=== PATIENT | female | born 1985 | race Caucasian/White ===

== ENCOUNTER 2018-03-19 14:25 | Emergency (ER) | payer BC ==
[2018-03-19] MEDS ORDERED: BABY ASPIRIN 81 MG CHEW PO ONE (14:58)
[2018-03-19] MEDS ORDERED: Sodium Chloride 0.9% 1000 ML 1,000 ML IV SCH (15:00)
[2018-03-19] MEDS ORDERED: Sodium Chloride 0.9% 1000 ML 1,000 ML ONE (15:06)
[2018-03-19] MEDS ORDERED: BABY ASPIRIN 81 MG CHEW ONE (15:06)
[2018-03-19 15:08] LABS: BASOPHIL % 0.2 % (0.0-0.4); Basophil (Absolute #) 0.01 (0-0.4); Eosinophil % 2.8 % (0.00-5.0); Eosinophil (Absolute #) 0.18 (0-0.5); Granulocyte Absolute (ANC) 4.26 (1.4-6.9); Granulocytes % 66.2 % (36.0-66.0); Hematocrit 36.1 % (35-47); Hemoglobin 12.2 gm/dl (12.0-16.0); Lymphocyte (Absolute #) 1.56 (1.0-4.6); Lymphocytes % 24.3 % (24.0-44.0); Mean Cell Volume 82.8 fl (78-100); Mean Corpuscular Hgb Concent. 33.8 g/dl (32-36); Monocyte (Absolute #) 0.42 (0.0-1.3); Monocytes % 6.5 % (0.0-12.0); Platelet Count 228 K/mm3 (150-450); Red Blood Count 4.36 M/mm3 (4.1-5.4); Red Cell Distribution Width 14.1 % (11.5-14.0); White Blood Count 6.4 K/mm3 (4.0-10.5)
--- NOTE | 2018-03-19 15:23 | XRAY ---
Indication: Dyspnea. Left chest pain. Comparison: November 07, 2016. PA/lateral chest again demonstrates normal heart, lungs, and bony thorax.
--- NOTE | 2018-03-19 15:40 | ERPHSYRPT ---
- History of Present Illness Time Seen by Provider: 03/19/18 14:46 Historian: patient Exam Limitations: clinical condition Patient Subjective Stated Complaint: chest pain for two hours while cleaning house today. states pain did stop on her way to the er. Triage Nursing Assessment: ambulated to room per self. skin w/d, color normal, resp easy. hx mvp. heart tones regular, strong. right radial pulse strong. no sob or edema noted. denies any other symptoms. Physician History: PATIENT WITH A HISTORY OF MITRAL VALVE PROLAPSE AND ANXIETY COMPLAINS OF CHEST PAINS SHARP WHILE CLEANING, OVER STERUM AND LEFT SIDE OF CHEST BELOW BREAST AND AXILLA. STATES PAIN RESOLVED. DENIES ASSOCIATED DYSPNEA, DIAPHORESIS, PALPITATIONS, RADIATION OF PAIN TO NECK, JAW, BACK OR ARMS. SHE ALSO DENIES FEVER OR COUGH. Timing/Duration: today Activities at Onset: activity Quality: sharpness Location: substernal Chest Pain Radiation: no radiation Severity of Pain-Max: moderate Severity of Pain-Current: none Modifying Factors: Improves With: breathing, movement Associated Symptoms: hurts to breathe Prior Chest Pain/Cardiac Workup: echocardiography Nitro Today/Relief: no nitro taken today Aspirin Treatment Today: 81 mg x 4, provided by ED Allergies/Adverse Reactions: naproxen Allergy (Verified 03/19/18 14:45) Home Medications: PARoxetine HCl [Paroxetine HCl] 10 mg PO HS 03/19/18 [History] Hx Tetanus, Diphtheria Vaccination/Date Given: No Hx Influenza Vaccination/Date Given: No Hx Pneumococcal Vaccination/Date Given: No - Review of Systems Constitutional: No Fever, No Chills Eyes: No Symptoms Ears, Nose, & Throat: No Symptoms Respiratory: No Symptoms, No Cough, No Dyspnea Cardiac: Chest Pain, No Edema, No Syncope Abdominal/Gastrointestinal: No Symptoms, No Abdominal Pain, No Nausea, No Vomiting, No Diarrhea Genitourinary Symptoms: No Symptoms, No Dysuria Musculoskeletal: No Symptoms, No Back Pain, No Neck Pain Skin: No Rash Neurological: No Dizziness, No Focal Weakness, No Sensory Changes Psychological: No Symptoms Endocrine: No Symptoms All Other Systems: Reviewed and Negative - Past Medical History Pertinent Past Medical History: Yes Psycho-Social History: Anxiety Other Medical History: MITRAL VALVE PROLAPSE, NEUROCARDIOGENIC SYNCOPE - Past Surgical History Past Surgical History: Yes Other Surgical History: CYST REMOVED FROM LEFT WRIST. - Social History Smoking Status: Never smoker Exposure to second hand smoke: No Drug Use: none Patient Lives Alone: No - Female History Hx Last Menstrual Period: now Hx Now: No - Nursing Vital Signs Nursing Vital Signs: Initial Vital Signs Temperature 97.9 F 03/19/18 14:28 Pulse Rate 77 03/19/18 14:28 Respiratory Rate 16 03/19/18 14:28 Blood Pressure 127/96 03/19/18 14:28 O2 Sat by Pulse Oximetry 99 03/19/18 14:28 Pain Scale Pain Intensity 0 - Physical Exam General Appearance: no apparent distress, alert Eye Exam: PERRL/EOMI, eyes nml inspection Ears, Nose, Throat Exam: normal ENT inspection, moist mucous membranes Neck Exam: normal inspection, non-tender, supple, full range of motion Respiratory Exam: normal breath sounds, chest tenderness, lungs clear, No respiratory distress Cardiovascular Exam: regular rate/rhythm, normal heart sounds Gastrointestinal/Abdomen Exam: soft, normal bowel sounds, No tenderness, No mass Back Exam: normal inspection, No CVA tenderness, No vertebral tenderness Extremity Exam: normal inspection, normal range of motion Neurologic Exam: alert, 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, cooperative, normal mood/affect, sensation nml, No motor deficits Skin Exam: normal color, warm, dry SpO2: 99 Oxygen Delivery: Room Air - Course EKG Interpreted by Me: RATE, Sinus Rhythm (RATE OF 73), NORMAL AXIS, Other ( REPEAT EKG NORMAL SINUS RHYTHM RATE 68) Ordered Tests: Active Orders 24 hr Category Date Time Status Ramp Service Man STAT Care 03/19/18 14:59 Active EKG-ER Only STAT Care 03/19/18 14:58 Active EKG-ER Only STAT Care 03/19/18 16:06 Active IV Insertion STAT Care 03/19/18 14:58 Active CHEST 2 VIEWS (PA AND LAT) Stat Exams 03/19/18 14:59 Completed BMP Stat Lab 03/19/18 14:30 Completed CBC W DIFF Stat Lab 03/19/18 14:30 Completed D-DIMER QUANTITATION Stat Lab 03/19/18 14:30 Completed HCG,QUALITATIVE URINE Stat Lab 03/19/18 15:45 Completed PROTIME WITH INR Stat Lab 03/19/18 14:30 Completed TROPONIN Q3H Lab 03/19/18 14:30 Completed TROPONIN Q3H Lab 03/19/18 18:00 Ordered TROPONIN Q3H Lab 03/19/18 21:00 Ordered TROPONIN Q3H Lab 03/20/18 00:00 Ordered TROPONIN Q3H Lab 03/20/18 03:00 Ordered Medication Summary Generic Name Dose Route Start Last Admin Trade Name Ayan PRN Reason Stop Dose Admin Sodium Chloride 1,000 mls @ 50 mls/hr 03/19/18 15:00 03/19/18 15:21 Sodium Chloride 0.9% 1000 Ml IV 04/18/18 14:59 50 mls/hr .Q20H KIT Administration Discontinued Medications Generic Name Dose Route Start Last Admin Trade Name Ayan PRN Reason Stop Dose Admin Aspirin 324 mg 03/19/18 14:58 03/19/18 15:20 Baby Aspirin 81 Mg Chew PO 03/19/18 14:59 324 mg STAT ONE Administration Aspirin Confirm 03/19/18 15:06 Baby Aspirin 81 Mg Chew Administered 03/19/18 15:07 Dose 324 mg .ROUTE .[email or web address] ONE Lab/Rad Data: Laboratory Result Diagrams 03/19/18 14:30 03/19/18 14:30 Laboratory Results 03/19/18 03/19/18 03/19/18 Range/Units 15:45 14:30 14:30 WBC (4.0-10.5) K/mm3 RBC (4.1-5.4) M/mm3 Hgb (12.0-16.0) gm/dl Hct (35-47) % MCV (78-100) fl MCH (26-32) pg MCHC (32-36) g/dl RDW (11.5-14.0) % Plt Count (150-450) K/mm3 MPV (6-9.5) fl Gran % (36.0-66.0) % Eos # (Auto) (0-0.5) Absolute Lymphs (auto) (1.0-4.6) Absolute Monos (auto) (0.0-1.3) Lymphocytes % (24.0-44.0) % Monocytes % (0.0-12.0) % Eosinophils % (0.00-5.0) % Basophils % (0.0-0.4) % Absolute Granulocytes (1.4-6.9) Basophils # (0-0.4) PT 11.5 (9.95-12.35) SECONDS INR 0.99 (0.8-3.0) D-Dimer < 215 L (215-500) ng/mL Sodium (137-145) mmol/L Potassium (3.5-5.1) mmol/L Chloride (98-107) mmol/L Carbon Dioxide (22-30) mmol/L Anion Gap (5-15) MEQ/L BUN (7-17) mg/dL Creatinine (0.52-1.04) mg/dL Estimated GFR ML/MIN Glucose (74-106) mg/dL Calcium (8.4-10.2) mg/dL Troponin I < 0.012 (0.000-0.034) ng/mL Urine HCG, Qual NEGATIVE (Negative) 03/19/18 03/19/18 Range/Units 14:30 14:30 WBC 6.4 (4.0-10.5) K/mm3 RBC 4.36 (4.1-5.4) M/mm3 Hgb 12.2 (12.0-16.0) gm/dl Hct 36.1 (35-47) % MCV 82.8 (78-100) fl MCH 28.0 (26-32) pg MCHC 33.8 (32-36) g/dl RDW 14.1 H (11.5-14.0) % Plt Count 228 (150-450) K/mm3 MPV 10.0 H (6-9.5) fl Gran % 66.2 H (36.0-66.0) % Eos # (Auto) 0.18 (0-0.5) Absolute Lymphs (auto) 1.56 (1.0-4.6) Absolute Monos (auto) 0.42 (0.0-1.3) Lymphocytes % 24.3 (24.0-44.0) % Monocytes % 6.5 (0.0-12.0) % Eosinophils % 2.8 (0.00-5.0) % Basophils % 0.2 (0.0-0.4) % Absolute Granulocytes 4.26 (1.4-6.9) Basophils # 0.01 (0-0.4) PT (9.95-12.35) SECONDS INR (0.8-3.0) D-Dimer (215-500) ng/mL Sodium 141 (137-145) mmol/L Potassium 4.1 (3.5-5.1) mmol/L Chloride 105 (98-107) mmol/L Carbon Dioxide 27 (22-30) mmol/L Anion Gap 12.8 (5-15) MEQ/L BUN 16 (7-17) mg/dL Creatinine 0.78 (0.52-1.04) mg/dL Estimated GFR > 60.0 ML/MIN Glucose 88 (74-106) mg/dL Calcium 9.1 (8.4-10.2) mg/dL Troponin I (0.000-0.034) ng/mL Urine HCG, Qual (Negative) - Progress Progress Note: 03/19/18 15:39 ADMINISTERED ASPIRIN 324MG ORALLY Discussed with : Melvin (DISCUSSED WITH DR LOPEZ AT 1630 FOR FOLLOWUP) - Departure Time of Disposition: 16:36 Departure Disposition: Home Clinical Impression: CHEST WALL PAIN Condition: Good Critical Care Time: No Referrals: MONIQUE LOPEZ MD [Primary Care Provider] - Additional Instructions: CALL YOUR PRIMARY CARE PROVIDER TO SCHEDULE A FOLLOWUP APPOINTMENT. RETURN TO EMERGENCY FOR INCREASING PAIN DISCOMFORT.
[2018-03-19 15:42] LABS: INR 0.99 (0.8-3.0)
[2018-03-19 15:47] LABS: ANION GAP 12.8 MEQ/L (5-15); BLOOD UREA NITROGEN 16 mg/dL (7-17); CHLORIDE 105 mmol/L (98-107); Calcium 9.1 mg/dL (8.4-10.2); Carbon Dioxide 27 mmol/L (22-30); Creatinine 1 0.78 mg/dL (0.52-1.04); Glucose 88 mg/dL (74-106); Potassium 4.1 mmol/L (3.5-5.1); SODIUM 141 mmol/L (137-145)
[2018-03-19 15:49] LABS: D-DIMER QUANTITATION < 215 ng/mL (215-500)
[2018-03-19 16:50] VITALS: BP 103/69; PULSE 73; O2SAT 98
== END 2018-03-19 16:50 | disposition home or self-care (01) ==
LOC: ED 14:25
DX: R07.89 Other chest pain (principal); Z86.79 Personal history of other diseases of the circulatory system
CPT/HCPCS: 36000; 36415; 71046; 80048; 84484; 84703; 85025; 85379; 85610; 93005; 93041; 99284; A9270-GY

== ENCOUNTER 2019-10-19 07:42 | Emergency (ER) | payer BC, OTHER ==
--- NOTE | 2019-10-19 07:50 | ERPHSYRPT ---
- History of Present Illness Time Seen by Provider: 10/19/19 07:45 Source: patient Exam Limitations: no limitations Physician History: The patient is a 33-year-old female who is otherwise healthy presents with a chief complaint vaginal pain onset of her poorly was last Thursday, October 17, 2019. She reportedly started to feel a "burning sensation" in addition to "itching" or a vascular region that has progressively gotten worse. She nor as having some white colored discharge and reportedly started using Monistat yesterday which relieved the itching but she continues to feel the burning pain in addition to "tingling". She denies nno history of sexual transmitted diseases. She states he's only had one sexual partner which is her and reports that she has been monogamous. Of note, the patient reportedly finished a course of antibiotics, specifically amoxicillin for what was thought to be strep pharyngitis but ultimately reportedly tested negative for this. She states her has had a genital lesion in the past but she does not know she's actually been diagnosed with genital herpes in the past. She endorses having some nausea and but denies vomiting, fever, chills, back pain, abdominal pain, and increased urinary frequency, bladder hesitancy, urgency, diarrhea, constipation. Allergies/Adverse Reactions: naproxen Allergy (Verified 10/19/19 08:09) Home Medications: PARoxetine HCl [Paroxetine HCl] 20 mg PO HS 03/19/18 [History] Phentermine HCl [Adipex-P] 37.5 mg PO DAILY 10/19/19 [History] Hx Tetanus, Diphtheria Vaccination/Date Given: No Hx Influenza Vaccination/Date Given: No Hx Pneumococcal Vaccination/Date Given: No - Review of Systems Constitutional: No Fever, No Chills Abdominal/Gastrointestinal: Nausea Genitourinary Symptoms: Dysuria, Vaginal Discharge, Vaginal Itching, Other ( Vaginal burning), No Vaginal Bleeding All Other Systems: Reviewed and Negative - Past Medical History Pertinent Past Medical History: Yes Psycho-Social History: Anxiety Other Medical History: MITRAL VALVE PROLAPSE, NEUROCARDIOGENIC SYNCOPE - Past Surgical History Past Surgical History: Yes Other Surgical History: CYST REMOVED FROM LEFT WRIST. - Social History Smoking Status: Never smoker Exposure to second hand smoke: No Drug Use: none Patient Lives Alone: No - Nursing Vital Signs Nursing Vital Signs: Initial Vital Signs Temperature 97.4 F 10/19/19 07:46 Pulse Rate 95 H 10/19/19 07:46 Respiratory Rate 12 10/19/19 07:46 Blood Pressure 104/72 10/19/19 07:46 O2 Sat by Pulse Oximetry 98 10/19/19 07:46 Pain Scale Pain Intensity 6 - Physical Exam General Appearance: no apparent distress, alert Eye Exam: PERRL/EOMI, eyes nml inspection Ears, Nose, Throat Exam: normal ENT inspection, No pharyngeal erythema, No tonsillar exudate Neck Exam: normal inspection Respiratory Exam: normal breath sounds, lungs clear, airway intact, No respiratory distress, No diminished breath sounds Cardiovascular Exam: regular rate/rhythm, normal heart sounds, normal peripheral pulses Gastrointestinal/Abdomen Exam: soft, normal bowel sounds, No tenderness, No distention, No mass Pelvic Exam: vaginal discharge, other (Vesicular lesions noted to labia minora. Both labia minora and majora were erythematous, swollen, and tender to touch. The patient seems to have evidence of recent vaginal use of Monostat present. Vaginal tenderness ), No adnexal tenderness, No vaginal bleeding Back Exam: normal inspection Extremity Exam: normal inspection Neurologic Exam: alert, 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, cooperative, normal mood/affect Skin Exam: normal color, warm, dry SpO2 Interpretation: normal O2 Delivery: Room Air - Course Nursing assessment & vital signs reviewed: Yes Ordered Tests: Active Orders 24 hr Category Date Time Status Pelvic Exam Assist STAT Care 10/19/19 08:06 Active Wet Prep Stat Lab 10/19/19 09:43 Completed Medication Summary Discontinued Medications Generic Name Dose Route Start Last Admin Trade Name Ayan PRN Reason Stop Dose Admin Lidocaine HCl 20 ml 10/19/19 09:15 10/19/19 09:22 Xylocaine Viscous 2% 20 Ml Cup PO 10/19/19 09:16 20 ml STAT ONE Administration Lidocaine HCl Confirm 10/19/19 09:17 Xylocaine Hcl Viscous * Administered 10/19/19 09:18 Dose 20 ml .ROUTE .ST-MED ONE Lab/Rad Data: Laboratory Results 10/19/19 10/19/19 Range/Units 09:43 09:40 WBC (Wet Prep) None Seen RBC (Wet Prep) Few Epi Cells (Wet Prep) Few Bacteria (Wet Prep) Few Clue Cells (Wet Prep) None Seen Trichomonas (Wet Prep) None Seen Budding Yeast (Wet Prp) None Seen Chlamydia DNA (PCR) NEGATIVE N.gonorrhoeae DNA Probe NEGATIVE - Progress Progress: unchanged Progress Note: 10/19/19 15:30 The patient's exam and complaint seems consistent with genital herpes. She was reassured and informed that if her was the one that indeed transmitted to that her he may have been carrier and a half infected from a prior relationship. she is instructed to refrain from intercourse until her lesions have completely healed and to use protection in the future to avoid transmitting to any future partners or her if he was not the primary source of infection. She was also instructed to followup with her primary care provider or the health Department for for comprehensive STD testing, specifically HIV, syphilis, and hepatitis. She agreed with him verbally understood the discharge plan. Counseled pt/family regarding: lab results, diagnosis, need for follow-up - Departure Departure Disposition: Home Clinical Impression: Genital herpes Condition: Good Critical Care Time: No Referrals: MONIQUE LOPEZ MD [Primary Care Provider] - Instructions: Genital Herpes (DC), Screening for Sexually Transmitted Infections, Tests for Herpes Additional Instructions: Please refrain from having intercourse until your symptoms have completely resolved. Even after your symptoms resolve,you may still be contagious and will need to notify any future sexual partners other diagnosis and use protection when having intercourse to prevent spread of the virus. Also, please see your primary care provider for more comprehensive sexual transmitted disease testing such as HIV in addition to syphilis and hepatitis, which are not tested for today. He can also go to the [facility] to have this done. Prescriptions: Hydrocodone/APAP 5-325 Tab^^^ [Clyo 5-325 Tablet^^^] 1 tab PO Q6HPRN PRN #10 tablet MDD 6 PRN Reason: Pain Hydrocodone/APAP 5-325 Tab^^^ [Clyo 5-325 Tablet^^^] 1 tab PO Q6HPRN PRN #10 tablet MDD 6 PRN Reason: Pain Valacyclovir HCl [Valtrex] 1,000 mg PO BID 10 Days #20 tablet
[2019-10-19 08:14] VITALS: BP 104/72; PULSE 95; O2SAT 98
[2019-10-19] MEDS ORDERED: XYLOCAINE VISCOUS 2% 20 ML CUP PO ONE (09:15)
[2019-10-19] MEDS ORDERED: XYLOCAINE HCl Viscous ONE (09:17)
[2019-10-19 09:53] LABS: Bacteria Few; Clue Cells None Seen; Red Blood Cells Few; Trichomonas None Seen; White Blood Cells None Seen; Yeast None Seen
[2019-10-19 11:34] LABS: CHLAMYDIA DNA NEGATIVE; N GONORRHOEAE DNA NEGATIVE
[2019-10-21 04:53] LABS: Herpes Sim.Vir.1&2 Ql.PCR Swab HSV-1 Detected (Negative)
== END 2019-10-19 09:39 | disposition home or self-care (01) ==
LOC: ED 07:42
DX: A60.00 Herpesviral infection of urogenital system, unspecified (principal)
CPT/HCPCS: 36415; 87210; 87490; 87529; 87590; 99284; A9270-GY

== ENCOUNTER 2020-02-28 16:10 | Emergency (ER) | payer OTHER ==
[2020-02-28 16:26] VITALS: BP 130/86; PULSE 82; O2SAT 100
--- NOTE | 2020-02-28 16:41 | ERPHSYRPT ---
- History of Present Illness Source: patient Exam Limitations: no limitations Patient Subjective Stated Complaint: Pt was walking out of her garage and she rolled her left ankle and injured the top of her left foot Triage Nursing Assessment: Pt brought by to the ER, left foot swollen on top lateral side, vitals wnl, rates pain 6/10, pulses normal, cap refill normal, denies any other injuries Physician History: Pt fell and injuried her L foot. She denies other/previous injuries. Pain is 6 on scale. She refuses pain meds at this time. Method of Injury: fell Occurred: just prior to arrival Quality: constant Severity of Pain-Max: moderate Severity of Pain-Current: moderate Lower Extremities Pain: foot: left Modifying Factors: Improves With: movement Associated Symptoms: none Allergies/Adverse Reactions: naproxen Allergy (Verified 02/28/20 16:26) Home Medications: PARoxetine HCL [Paroxetine HCl] 20 mg PO HS 03/19/18 [History] Hx Tetanus, Diphtheria Vaccination/Date Given: No Hx Influenza Vaccination/Date Given: No Hx Pneumococcal Vaccination/Date Given: No Travel Risk - International Travel Have you traveled outside of the country in past 3 weeks: No - Coronavirus Screening Are you exhibiting any of the following symptoms?: No Close contact with a COVID-19 positive Pt in past 14-21 Days: No - Review of Systems Constitutional: No Symptoms Eyes: No Symptoms Ears, Nose, & Throat: No Symptoms Respiratory: No Symptoms Cardiac: No Symptoms Abdominal/Gastrointestinal: No Symptoms Genitourinary Symptoms: No Symptoms Skin: No Symptoms Neurological: No Symptoms Psychological: No Symptoms Endocrine: No Symptoms Hematologic/Lymphatic: No Symptoms Immunological/Allergic: No Symptoms - Past Medical History Pertinent Past Medical History: Yes Neurological History: Other (Syncope) Cardiac History: Other (MVP) Psycho-Social History: Anxiety Other Medical History: MITRAL VALVE PROLAPSE, NEUROCARDIOGENIC SYNCOPE - Past Surgical History Past Surgical History: Yes Musculoskeletal: Other (L wrist cyst) Other Surgical History: CYST REMOVED FROM LEFT WRIST. - Social History Smoking Status: Never smoker Exposure to second hand smoke: No Drug Use: none Patient Lives Alone: No - Female History Hx Last Menstrual Period: 02/14/2020 Hx Now: No - Nursing Vital Signs Nursing Vital Signs: Initial Vital Signs Temperature 98.0 F 02/28/20 16:19 Pulse Rate 82 02/28/20 16:19 Blood Pressure 130/86 02/28/20 16:19 O2 Sat by Pulse Oximetry 100 02/28/20 16:19 Pain Scale Pain Intensity 6 - Physical Exam General Appearance: no apparent distress Eyes, Ears, Nose, Throat Exam: normal ENT inspection Neck Exam: normal inspection, non-tender Cardiovascular/Respiratory Exam: normal breath sounds, regular rate/rhythm, heart sounds normal Back Exam: normal inspection Hips Exam: bilateral: non-tender, normal inspection Legs Exam: bilateral leg: non-tender, normal inspection, normal range of motion , no evidence of injury Knees Exam: bilateral knee: non-tender, normal inspection, normal range of motion, no evidence of injury Ankle Exam: bilateral ankle: non-tender, normal inspection, normal range of motion, no evidence of injury Foot Exam: left foot: bone tenderness (Good pedal pulse/distal sensation, and capillary return) Neuro/Tendon Exam: normal sensation Mental Status Exam: alert, 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, cooperative Skin Exam: normal color, warm, dry SpO2 Interpretation: normal SpO2: 100 O2 Delivery: Room Air - Radiology Exams Foot X-ray Interpretation: Interpreted by me (L 5th metatarsaL FX) Ordered Tests: Active Orders 24 hr Category Date Time Status Crutches STAT Care 02/28/20 17:14 Ordered Splint STAT Care 02/28/20 17:11 Ordered FOOT (MINIMUM 3 VIEWS) Stat Exams 02/28/20 17:01 Completed - Progress Progress: improved Progress Note: 02/28/20 17:16 Orthoboot LLE per nurse/NVI/Crutches per nurse Counseled pt/family regarding: need for follow-up, rad results - Departure Departure Disposition: Home Clinical Impression: Metatarsal fracture Condition: Stable Critical Care Time: No Referrals: MONIQUE LOPEZ MD [Primary Care Provider] - ORTHO - ERIK SULTANA NP [NON-STAFF PHY W/O PRIVILEGES] - Instructions: Foot Fracture (DC) Additional Instructions: Ice for 12-24 hours Pain meds as needed No weight bearing Follow up with ortho clinic Prescriptions: Hydrocodone/APAP 5-325 Tab^^^ [Cameron 5-325 Tablet^^^] 1 each PO Q4HPRN PRN #7 tablet MDD 6 PRN Reason: Pain
--- NOTE | 2020-02-28 17:06 | XRAY ---
Indication: Pain following fall. Comparison: None 3 nonweightbearing views left foot demonstrates nondisplaced 5th metatarsal base fracture. Incidental tiny posterior heel spur. No other bony, articular, or soft tissue abnormalities.
== END 2020-02-28 17:27 | disposition home or self-care (01) ==
LOC: ED 16:10
DX: S92.302A Fracture of unspecified metatarsal bone(s), left foot, initial encounter for closed fracture (principal); X50.9XXA Other and unspecified overexertion or strenuous movements or postures, initial encounter; Y93.01 Activity, walking, marching and hiking; Y92.59 Other trade areas as the place of occurrence of the external cause
CPT/HCPCS: 73630; 99283; L4386

== ENCOUNTER 2020-11-23 08:29 | Day surgery (SDC) | payer OTHER ==
--- NOTE | 2020-11-09 07:39 | HP ---
DATE OF SURGERY: 11/16/2020 HISTORY OF PRESENT ILLNESS: The patient presents with complaints of epigastric pain. She states that she has had some burping and belching lately. She has been put on a proton pump inhibitor per her family doctor. PAST MEDICAL HISTORY: Mitral valve prolapse, depression. PAST SURGICAL HISTORY: Left wrist cyst excision ALLERGIES: NAPROXEN. MEDICATIONS: Dulcolax, Pepcid, iron tablet, gabapentin, pantoprazole, Paxil. FAMILY HISTORY: None reported. SOCIAL HISTORY: Negative. REVIEW OF SYSTEMS: CONSTITUTIONAL: Denies fever or chills. CHEST: Denies shortness of breath. CVS: Denies chest pain. ABDOMEN: Reports epigastric pain. Denies nausea, vomiting, diarrhea, constipation or rectal bleeding. INTEGUMENTARY: Negative. PHYSICAL EXAMINATION: GENERAL: No acute distress. CHEST: Nonlabored. No shortness of breath. CVS: Regular rate and rhythm. ABDOMEN: Soft, nontender to palpation. EXTREMITIES: No edema. NEUROLOGIC: Alert. PSYCHIATRIC: Appropriate. IMPRESSION: Epigastric pain, abdominal pain. PLAN: EGD with Dr. Tim Ash. As dictated by Felipa Jang NP.
--- NOTE | 2020-11-22 14:01 | HP ---
DATE OF SURGERY: 11/23/2020 HISTORY OF PRESENT ILLNESS: The patient presents with some generalized upper abdominal pain. She reports constant belching. It does not look like she has had any endoscopies in the past. PAST MEDICAL HISTORY: Depression. Mitral valve prolapse. PAST SURGICAL HISTORY: Cyst of the left wrist removed. ALLERGIES: NAPROXEN. MEDICATIONS: Paxil. FAMILY HISTORY: None reported. SOCIAL HISTORY: None. REVIEW OF SYSTEMS: CONSTITUTIONAL: Denies fever or chills. CHEST: Denies shortness of breath. CVS: Denies chest pain. ABDOMEN: Reports epigastric-type generalized abdominal pain. Denies nausea, vomiting, diarrhea, constipation or rectal bleeding. INTEGUMENTARY: Negative. PHYSICAL EXAMINATION: GENERAL: No acute distress. CHEST: Nonlabored. No shortness of breath. CVS: Regular rate and rhythm. ABDOMEN: Soft, nontender to palpation. EXTREMITIES: No edema. NEUROLOGIC: Alert. PSYCHIATRIC: Appropriate. IMPRESSION: Abdominal pain. PLAN: EGD with Dr. Tim Ash. As dictated by Felipa Jang NP.
[2020-11-23] MEDS ORDERED: VERSED 5 MG/5 ML IV ONE (08:30)
[2020-11-23] MEDS ORDERED: DEMEROL 50 MG IJ ONE ×2 (08:30)
[2020-11-23 08:56] VITALS: O2SAT 98
[2020-11-23] MEDS ORDERED: Lactated Ringers 1,000 ML IV SCH (09:00)
--- NOTE | 2020-11-23 11:20 | OP ---
SURGERY DATE/TIME: 11/23/2020 1048 PREOPERATIVE DIAGNOSIS: Belching and epigastric pain, symptoms of reflux. POSTOPERATIVE DIAGNOSES: 1) Grade B/D reflux. No hiatal hernia. 2) Two gastric polyps. PROCEDURE: EGD with hot polypectomy x2. SURGEON: Tim Ash M.D. ANESTHESIA: IV sedation, 15 minutes monitored. COMPLICATIONS: None. CONDITION: Stable. INDICATION: A patient requiring evaluation. DESCRIPTION OF PROCEDURE: Taken to endoscopy. IV sedation titrated. Oximetry kept over 90%. Comfort level satisfactory. Pharyngoesophageal junction cannulated. Esophagus normal down to gastroesophageal junction. Two lips of esophagitis grade B/D. No hiatal hernia. Fundus normal. Body two polyps on the posterior aspect taken with hot biopsy forceps to extinction. Antrum, pylorus, duodenal bulb, second portion normal. Scope withdrawn looped upon itself. Gastroesophageal junction normal from below. Polyp site satisfactory. Scope withdrawn. The patient tolerated the procedure satisfactorily. She is on Pepcid. We will leave her on Pepcid. IMPRESSION: The patient has had upper GI symptoms. There is not much pathology. A little reflux, two polyps which were taken. She will return back to the office for follow up.
[2020-11-23 12:03] VITALS: PULSE 79
[2020-11-23 12:05] VITALS: BP 127/69
== END 2020-11-23 12:11 | disposition home or self-care (01) ==
LOC: SDC 08:29
PROVIDERS: ATTEND Surgery
DX: K21.9 Gastro-esophageal reflux disease without esophagitis (principal); K31.7 Polyp of stomach and duodenum; R10.13 Epigastric pain; Z79.899 Other long term (current) drug therapy
CPT/HCPCS: J2175; J2250

== ENCOUNTER 2021-03-17 17:01 | Emergency (ER) | payer OTHER ==
--- NOTE | 2021-03-17 17:04 | ERPHSYRPT ---
- History of Present Illness Time Seen by Provider: 03/17/21 17:04 Source: patient Exam Limitations: no limitations Physician History: This is a 35-year-old white female who has had 5-day history of cough and sore throat and fatigue. Patient was seen at the walk-in clinic approximately 4 days ago and was given a prescription for tapering steroid. She still has 3 days of steroid prescription remaining. She states that the cough has persisted but slightly improved. Her sore throat was also improving. Patient had a negative strep test as well as a negative Covid test result. She was concerned that she might have a pneumonia and wanted a chest x-ray. Patient has no abdominal pain. She has had no nausea vomiting or diarrhea. She has no dysuria. She has no vaginal bleeding or abnormal vaginal discharge. Patient denies chest pain. She denies shortness of breath. She does state that she has pain in her shoulders and in the upper back that is more noticeable when she is coughing. Timing/Duration: day(s) (5) Method of Injury: other (No acute injury) Quality: sharp, aching Severity of Pain-Max: mild Severity of Pain-Current: mild Modifying Factors: Improves With: other (Coughing worsens the pain in her shoulders and back) Associated Symptoms: denies symptoms Previous symptoms: no prior history Allergies/Adverse Reactions: naproxen Allergy (Verified 03/17/21 17:13) Rapid Heart Beat can't remember all Home Medications: PARoxetine HCL [Paroxetine HCl] 20 mg PO HS 03/19/18 [History] Prednisone 10 mg [Deltasone 10 mg] 1 ea DAILY 03/17/21 [History] Hx Tetanus, Diphtheria Vaccination/Date Given: No Hx Influenza Vaccination/Date Given: No Hx Pneumococcal Vaccination/Date Given: No Travel Risk - International Travel Have you traveled outside of the country in past 3 weeks: No - Coronavirus Screening Are you exhibiting any of the following symptoms?: No Close contact with a COVID-19 positive Pt in past 14-21 Days: No - Vaccine Status Have you recieved a Covid-19 vaccination: No - Review of Systems Constitutional: Fatigue, No Fever, No Chills Eyes: No Symptoms Ears, Nose, & Throat: Throat Pain Respiratory: Cough Cardiac: No Symptoms Abdominal/Gastrointestinal: No Symptoms Genitourinary Symptoms: No Symptoms Musculoskeletal: No Symptoms Skin: No Symptoms Neurological: No Symptoms Psychological: No Symptoms Endocrine: No Symptoms Hematologic/Lymphatic: No Symptoms Immunological/Allergic: No Symptoms All Other Systems: Reviewed and Negative - Past Medical History Pertinent Past Medical History: Yes Neurological History: No Pertinent History ENT History: No Pertinent History Cardiac History: Other Respiratory History: Other Endocrine Medical History: No Pertinent History Musculoskeletal History: No Pertinent History GI Medical History: No Pertinent History History: No Pertinent History Psycho-Social History: Anxiety Female Reproductive Disorders: No Pertinent History Other Medical History: Snores excessively at night. Mitral valve prolapse. Hx of anemia.Hx of neurocardiogenic syncope. - Past Surgical History Past Surgical History: Yes Neuro Surgical History: No Pertinent History Cardiac: No Pertinent History Respiratory: No Pertinent History Gastrointestinal: No Pertinent History Genitourinary: No Pertinent History Musculoskeletal: Orthopedic Surgery Female Surgical History: No Pertinent History Other Surgical History: Excision of cyst on left wrist. - Social History Smoking Status: Never smoker Exposure to second hand smoke: No Drug Use: none Patient Lives Alone: No Significant Family History: no pertinent family hx - Nursing Vital Signs Nursing Vital Signs: Initial Vital Signs Temperature 97.3 F 03/17/21 17:08 Pulse Rate 75 03/17/21 17:08 Respiratory Rate 18 03/17/21 17:08 Blood Pressure 135/90 03/17/21 17:08 O2 Sat by Pulse Oximetry 99 03/17/21 17:08 Pain Scale Pain Intensity 3 - Physical Exam General Appearance: no apparent distress, alert, anxiety Eye Exam: PERRL/EOMI, eyes nml inspection Ears, Nose, Throat Exam: pharyngeal erythema Neck Exam: normal inspection, non-tender, supple, full range of motion Respiratory Exam: normal breath sounds, lungs clear, airway intact, No chest tenderness, No respiratory distress Cardiovascular Exam: regular rate/rhythm, normal heart sounds, normal peripheral pulses Gastrointestinal Exam: soft, normal bowel sounds, No tenderness Pelvic Exam: not done Rectal Exam: not done Back Exam: normal inspection, normal range of motion, No CVA tenderness, No vertebral tenderness Extremity Exam: normal inspection, normal range of motion, pelvis stable Neurologic Exam: alert, 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, cooperative, chain maker machine II-XII nml as tested, normal mood/affect, nml cerebellar function, nml station & gait, sensation nml Skin Exam: normal color, warm, dry Lymphatic Exam: No adenopathy SpO2 Interpretation: normal O2 Delivery: Room Air Ordered Tests: Active Orders 24 hr Category Date Time Status CHEST 1 VIEW (PORTABLE) Stat Exams 03/17/21 17:37 Taken HCG,QUALITATIVE URINE Stat Lab 03/17/21 18:02 Completed UA W/RFX UR CULTURE Stat Lab 03/17/21 18:02 Completed Lab/Rad Data: Laboratory Results 03/17/21 03/17/21 Range/Units 18:02 18:02 Urine Color YELLOW (YELLOW) Urine Appearance CLEAR (CLEAR) Urine pH 6.0 (5-6) Ur Specific [place] 1.017 (1.005-1.025) Urine Protein NEGATIVE (Negative) Urine Ketones NEGATIVE (NEGATIVE) Urine Blood MODERATE (0-5) [place]/ul Urine Nitrite NEGATIVE (NEGATIVE) Urine Bilirubin NEGATIVE (NEGATIVE) Urine Urobilinogen NEGATIVE (0-1) mg/dL Ur Leukocyte Esterase NEGATIVE (NEGATIVE) Urine WBC (Auto) 0-2 (0-5) /HPF Urine RBC (Auto) 0-2 (0-2) /HPF U Epithel Cells (Auto) RARE (FEW) /HPF Urine Bacteria (Auto) NONE (NEGATIVE) /HPF Urine Mucus (Auto) SLIGHT (NEGATIVE) /HPF Urine Culture Reflexed NO (NO) Urine Glucose NEGATIVE (NEGATIVE) mg/dL Urine HCG, Qual NEGATIVE (Negative) - Progress Progress: unchanged, re-examined Progress Note: 03/17/21 18:48 Chest x-ray shows no acute cardiopulmonary process. Counseled pt/family regarding: lab results, diagnosis, need for follow-up, rad results - Departure Departure Disposition: Home Clinical Impression: Upper respiratory infection Condition: Stable Critical Care Time: No Referrals: RANJIT JEFFERSON MD [ACTIVE STAFF] - Additional Instructions: Drink plenty of fluids. Continue taking your steroids as prescribed. Follow-up with your primary care physician for persistent symptoms. Return to the emergency department if symptoms worsen. Prescriptions: Hydrocodone/Acetaminophen [Hydrocodone-Acetamn 7.5-325/15] 10 ml PO Q8H PRN PRN #120 solution MDD 30 ml PRN Reason: Cough Azithromycin 250 mg [Zithromax 250 MG TABLET] 250 mg PO ZPACK #6 tablet
[2021-03-17 18:22] LABS: Appearance CLEAR (CLEAR); Bilirubin NEGATIVE (NEGATIVE); Blood MODERATE Ery/ul (0-5); Epithelial Cells RARE /HPF (FEW); Glucose NEGATIVE (NEGATIVE); Ketones NEGATIVE (NEGATIVE); Leukocyte Esterase NEGATIVE (NEGATIVE); Mucus SLIGHT /HPF (NEGATIVE); Nitrite NEGATIVE (NEGATIVE); Protein,Urine Dip NEGATIVE (Negative); RBC 0-2 /HPF (0-2); Specific Gravity 1.017 (1.005-1.025); Urobilinogen NEGATIVE mg/dL (0-1); WBC 0-2 /HPF (0-5)
[2021-03-17] MEDS ORDERED: Rocephin 1000 MG INJ IM ONE (18:51)
[2021-03-17] MEDS ORDERED: solu-MEDROL 125 MG IM ONE (18:52)
[2021-03-17] MEDS ORDERED: Rocephin 1000 MG INJ ONE (19:03)
[2021-03-17] MEDS ORDERED: solu-MEDROL 125 MG ONE (19:03)
[2021-03-17] MEDS ORDERED: XYLOCAINE 2% HCL 20 ML MDV ONE (19:03)
[2021-03-17 19:21] LABS: Absolute Neutrophil Ct (ANC) 3.33 (1.4-6.9); BASOPHIL % 0.3 % (0.0-0.4); Basophil (Absolute #) 0.02 (0-0.4); Eosinophil % 2.5 % (0.00-5.0); Eosinophil (Absolute #) 0.16 (0-0.5); Hematocrit 37.6 % (35-47); Hemoglobin 11.6 gm/dl (12.0-16.0); Lymphocyte (Absolute #) 2.44 (1.0-4.6); Lymphocytes % 37.6 % (24.0-44.0); Mean Cell Volume 83.6 fl (78-100); Mean Corpuscular Hemoglobin 25.8 pg (26-32); Mean Corpuscular Hgb Concent. 30.9 g/dl (32-36); Mean Platelet Volume 9.7 fl (7.5-11.0); Monocyte (Absolute #) 0.54 (0.0-1.3); Monocytes % 8.3 % (0.0-12.0); Neutrophil % 51.3 % (36.0-66.0); Platelet Count 239 K/mm3 (150-450); Red Cell Distribution Width 15.2 % (11.5-14.0); White Blood Count 6.5 K/mm3 (4.0-10.5)
[2021-03-17 19:58] VITALS: BP 109/83; PULSE 69; O2SAT 99
--- NOTE | 2021-03-17 20:24 | XRAY ---
Indication: Fever, cough, and fatigue. Comparison: March 19, 2018. Portable chest again demonstrates normal heart, lungs, and bony thorax.
== END 2021-03-17 19:51 | disposition home or self-care (01) ==
LOC: ED 17:01
DX: J06.9 Acute upper respiratory infection, unspecified (principal); R53.83 Other fatigue; R05 Cough; J02.9 Acute pharyngitis, unspecified; Z79.899 Other long term (current) drug therapy; D64.9 Anemia, unspecified; R06.83 Snoring
CPT/HCPCS: 36415; 71045; 81001; 84703; 85025; 86308; 96372; 99284; J0696; J2930

== ENCOUNTER 2021-07-24 07:08 | Day surgery (SDC) | payer OTHER ==
[2021-07-24] MEDS ORDERED: CEFAZOLIN 2 GM-D5W BAG** 2 GM/50 ML ML IV ONE (07:16)
[2021-07-24] MEDS ORDERED: Lactated Ringers 1,000 ML IV ONE (07:16)
[2021-07-24] MEDS ORDERED: Lactated Ringers 1,000 ML IV SCH (07:30)
[2021-07-24] MEDS ORDERED: CEFAZOLIN 2 GM-D5W BAG** 2 GM/50 ML ML IV SCH (07:30)
[2021-07-24] MEDS ORDERED: Versed 2 MG/2 ML Injection ONE (09:01)
[2021-07-24] MEDS ORDERED: SUBLIMAZE 100 MCG/2 ML ONE (09:02)
[2021-07-24] MEDS ORDERED: DIPRIVAN 200 MG/20 ML IV ONE (09:02)
[2021-07-24] MEDS ORDERED: TORAdol 30 mg Injection ONE (09:04)
[2021-07-24] MEDS ORDERED: Decadron 4 MG INJ ONE (09:04)
[2021-07-24] MEDS ORDERED: Zofran 4 MG/2 ML VIAL ONE (09:04)
[2021-07-24 11:00] VITALS: O2SAT 98
[2021-07-24] MEDS ORDERED: APRESOLINE 20 MG/ML INJ IV ONE (11:11)
[2021-07-24] MEDS ORDERED: TYLENOL EXTRA STRENGTH 500 MG ONE (11:16)
[2021-07-24] MEDS ORDERED: TYLENOL EXTRA STRENGTH 500 MG PO STA (11:25)
[2021-07-24 11:37] VITALS: BP 114/77; PULSE 84
--- NOTE | 2021-07-25 10:55 | OP ---
SURGERY DATE/TIME: 07/24/2021 0903 PREOPERATIVE DIAGNOSIS: Abnormal uterine bleeding. POSTOPERATIVE DIAGNOSIS: Abnormal uterine bleeding. PROCEDURE: Hysteroscopy D&C with NovaSure ablation. SURGEON: Victoriano Pat D.O. PARTY SUPPLY SPECIALIST: Princess Mercado surgical rn. ANESTHESIA: General. ESTIMATED BLOOD LOSS: Minimal. COMPLICATIONS: None. INDICATIONS: The risks, benefits, indications and alternatives of the procedure were reviewed with the patient prior to procedure. The patient understood the risk of infection, bleeding, bowel injury, bladder injury, ureteral injury, uterine perforation, pelvic infection associated with the surgery and desires to have this surgery as a possible means to alleviate her current medical condition. DESCRIPTION OF PROCEDURE AND FINDINGS: At this point the patient is taken to the operating room, given general sedation, placed in dorsal lithotomy position, prepped and draped in the usual sterile fashion. A weighted speculum is then placed in the patient's vagina and the anterior lip of the cervix is grasped with a single tooth tenaculum. Endocervical dilators were advanced through the endocervical canal as a means to dilate the cervix and at this point a 5 mm hysteroscope was then placed in through the endocervical regional where visualization of the uterine cavity appeared to be within normal limits with no gross abnormalities that were noted. From this point the hysteroscope was then removed and a curette was then placed into the fundus of the uterus where curettage was performed in all quadrants of the uterus retrieving a mild amount of tissue. From this point after curettage the NovaSure instrument was then placed in through the endocervical canal where it was engaged with a length of 5 cm and a width of 4 cm. The machine was engaged with an ablative time of 1 minute and 38 seconds. After complete ablation the instrument was disengaged and removed from the uterine cavity without complication. At this point all instruments were removed from the patient's vaginal region. The patient was then out of the dorsal lithotomy position, was taken out of anesthesia and was then taken to the recovery room in stable condition. All instruments and laps were accounted for x2.
== END 2021-07-24 11:50 | disposition home or self-care (01) ==
LOC: SDC 07:08
PROVIDERS: ATTEND Obstetrics & Gynecology
DX: N93.9 Abnormal uterine and vaginal bleeding, unspecified (principal)
CPT/HCPCS: 84703; J0360; J0690; J1100; J1885; J2250; J2405; J2704; J3010; A9270-GY

== ENCOUNTER 2022-07-31 11:51 | Emergency (ER) | payer OTHER ==
--- NOTE | 2022-07-31 11:54 | ERPHSYRPT ---
- History of Present Illness Time Seen by Provider: 07/31/22 11:54 Source: patient Exam Limitations: no limitations Physician History: This is a 36-year-old white female who has chronic recurring pain in her right heel. She does have a history of heel spurs. She had appointment to see Dr. Sorto on 07/18/2022. However she left the office early and was not seen. She missed the appointment time today at the [facility] orthopedic clinic. Patient has had injections into her right heel and ankle in the past. She did not have any acute traumatic injury. She is not wanting any x-rays. She was hoping for an injection into her right ankle and heel. Method of Injury: other (No specific injury) Occurred: other (Chronic recurring exacerbation) Quality: aching (Right heel) Severity of Pain-Max: mild (Moderate) Severity of Pain-Current: mild (To moderate) Lower Extremities Pain: heel: right Modifying Factors: Improves With: movement Associated Symptoms: other Allergies/Adverse Reactions: naproxen Allergy (Verified 07/24/21 07:24) Rapid Heart Beat can't remember all Home Medications: Lorazepam 1 mg [Ativan 1 MG] 1 mg PO UD 07/16/21 [History] Paroxetine HCl 20 mg [Paxil 20 MG] 20 mg PO HS 07/16/21 [History] Hx Tetanus, Diphtheria Vaccination/Date Given: No Hx Influenza Vaccination/Date Given: No Hx Pneumococcal Vaccination/Date Given: No Travel Risk - International Travel Have you traveled outside of the country in past 3 weeks: No - Coronavirus Screening Are you exhibiting any of the following symptoms?: No Close contact with a COVID-19 positive Pt in past 14-21 Days: No - Vaccine Status Have you recieved a Covid-19 vaccination: No - Review of Systems Constitutional: No Symptoms Eyes: No Symptoms Ears, Nose, & Throat: No Symptoms Respiratory: No Symptoms Cardiac: No Symptoms Abdominal/Gastrointestinal: No Symptoms Genitourinary Symptoms: No Symptoms Musculoskeletal: Other (Painful right heel) Skin: No No Symptoms Neurological: No Symptoms Psychological: No Symptoms Endocrine: No Symptoms Hematologic/Lymphatic: No Symptoms, Easy Bruising Immunological/Allergic: No Symptoms All Other Systems: Reviewed and Negative - Past Medical History Pertinent Past Medical History: Yes Neurological History: No Pertinent History ENT History: No Pertinent History Cardiac History: Other Respiratory History: Other Endocrine Medical History: No Pertinent History Musculoskeletal History: No Pertinent History GI Medical History: No Pertinent History, GERD History: No Pertinent History Psycho-Social History: Anxiety Female Reproductive Disorders: Abnormal Uterine Bleeding Other Medical History: Snores excessively at night. Mitral valve prolapse. Hx of anemia.Hx of neurocardiogenic syncope.States has a murmer and has seen Dr. Dean, but unsure of last appointment. - Past Surgical History Past Surgical History: Yes Neuro Surgical History: No Pertinent History Cardiac: No Pertinent History Respiratory: No Pertinent History Gastrointestinal: No Pertinent History Genitourinary: No Pertinent History Musculoskeletal: Orthopedic Surgery Female Surgical History: Other Other Surgical History: Excision of cyst on left wrist.Cervical circlage - Social History Smoking Status: Never smoker Exposure to second hand smoke: No Drug Use: none Patient Lives Alone: No Significant Family History: no pertinent family hx - Nursing Vital Signs Nursing Vital Signs: Initial Vital Signs Temperature 97.6 F 07/31/22 11:56 Pulse Rate 84 07/31/22 11:56 Respiratory Rate 20 07/31/22 11:56 Blood Pressure 138/79 07/31/22 11:56 O2 Sat by Pulse Oximetry 99 07/31/22 11:56 Pain Scale Pain Intensity 3 - Physical Exam General Appearance: no apparent distress, alert, anxiety Eyes, Ears, Nose, Throat Exam: normal ENT inspection, moist mucous membranes Neck Exam: normal inspection, non-tender, supple, full range of motion Cardiovascular/Respiratory Exam: chest non-tender, no respiratory distress Gastrointestinal/Abdominal Exam: non-tender Back Exam: normal inspection, normal range of motion, No CVA tenderness, No vertebral tenderness Hips Exam: bilateral: non-tender, normal inspection, normal range of motion, no evidence of injury Legs Exam: bilateral leg: non-tender, normal inspection, normal range of motion, no evidence of injury Knees Exam: bilateral knee: non-tender, normal inspection, normal range of motion, no evidence of injury Ankle Exam: bilateral ankle: non-tender, normal inspection, normal range of motion, no evidence of injury Foot Exam: right foot: bone tenderness (Right heel), left foot: non-tender, bilateral foot: normal inspection, normal range of motion, no evidence of injury Neuro/Tendon Exam: normal sensation, normal motor functions, normal tendon functions, no evidence tendon injury Mental Status Exam: alert, 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, cooperative Skin Exam: normal color, warm, dry SpO2 Interpretation: normal O2 Delivery: Room Air - Course Nursing assessment & vital signs reviewed: Yes - Progress Progress: unchanged Progress Note: 07/31/22 12:14 I told the patient I would not be injecting steroid into her heel or ankle. I did tell her we could give her is intramuscular injection of steroid. However she declines this. Patient states that she is allergic to naproxen and ib uprofen but has taken prednisone in the past without any problems. Counseled pt/family regarding: diagnosis, need for follow-up - Departure Departure Disposition: Home Clinical Impression: Pain of right heel Condition: Stable Critical Care Time: No Referrals: MONIQUE LOPEZ MD [Primary Care Provider] - Follow up/PCP as directed Additional Instructions: Ice bath right heel 3 times a day. Take your medication as prescribed. Follow- up with podiatryDdivya Sorto or proceed to [facility] orthopedic clinic 9:52 AM Friday through Friday. It is a walk-in clinic and you do not need to have an appointment. Prescriptions: Prednisone 10 mg [Deltasone 10 mg] 10 mg PO TID #12 tablet
[2022-07-31 12:00] VITALS: O2SAT 99
[2022-07-31 12:25] VITALS: BP 138/70; PULSE 100
== END 2022-07-31 12:24 | disposition home or self-care (01) ==
LOC: ED 11:51
DX: M79.671 Pain in right foot (principal); Z79.52 Long term (current) use of systemic steroids; Z79.899 Other long term (current) drug therapy; Z28.310 Unvaccinated for COVID-19
CPT/HCPCS: 99281

== ENCOUNTER 2022-11-15 11:56 | Emergency (ER) | payer OTHER ==
[2022-11-15] MEDS ORDERED: Ativan 2 MG/1 ML VIAL IV ONE (11:58)
--- NOTE | 2022-11-15 11:58 | ERPHSYRPT ---
- History of Present Illness Time Seen by Provider: 11/15/22 11:58 Source: patient Exam Limitations: no limitations Physician History: 37yo F here for SOB that started 1 hour ago at rest. She denies CP, abd pain or recent illness. She has a hx of anxiety for which she takes Paxil QD and Ativan PRN. Patient didn't take any Ativan once the SOB started today. She denies c ough, congestion, wheezing or swelling today. Patient does report a hx of syncope, but no episodes today. Timing/Duration: hour(s) (1) Activities at Onset: none Severity of Dyspnea-Max: severe Severity of Dyspnea-Current: moderate Possible Cause: occasional episodes Modifying Factors: Improves With: nothing Associated Symptoms: constant, anxiety, No cough, No chest pain/discomfort, No edema, No fever, No lightheadedness, No wheezing, No calf pain, No leg swelling Allergies/Adverse Reactions: naproxen Allergy (Verified 11/15/22 12:06) Rapid Heart Beat can't remember all Home Medications: Lorazepam 1 mg [Ativan 1 MG] 1 mg PO UD 07/16/21 [History] Paroxetine HCl 20 mg [Paxil 20 MG] 20 mg PO HS 07/16/21 [History] Phentermine HCl [Adipex-P] 1 tab PO DAILY 11/15/22 [History] Hx Tetanus, Diphtheria Vaccination/Date Given: No Hx Influenza Vaccination/Date Given: No Hx Pneumococcal Vaccination/Date Given: No Travel Risk - Vaccine Status Have you recieved a Covid-19 vaccination: No - Review of Systems Constitutional: No Symptoms Eyes: No Symptoms Ears, Nose, & Throat: No Symptoms Respiratory: Dyspnea, No Cough, No Wheezing Cardiac: No Symptoms Abdominal/Gastrointestinal: No Symptoms Genitourinary Symptoms: No Symptoms Musculoskeletal: No Symptoms Skin: No Symptoms Neurological: No Symptoms Psychological: Anxiety Endocrine: No Symptoms Hematologic/Lymphatic: No Symptoms Immunological/Allergic: No Symptoms All Other Systems: Reviewed and Negative - Past Medical History Pertinent Past Medical History: Yes Neurological History: No Pertinent History ENT History: No Pertinent History Cardiac History: Other Respiratory History: Other Endocrine Medical History: No Pertinent History Musculoskeletal History: No Pertinent History GI Medical History: No Pertinent History, GERD History: No Pertinent History Psycho-Social History: Anxiety Female Reproductive Disorders: Abnormal Uterine Bleeding Other Medical History: Snores excessively at night. Mitral valve prolapse. Hx of anemia.Hx of neurocardiogenic syncope.States has a murmer and has seen Dr. Dean, but unsure of last appointment. - Past Surgical History Past Surgical History: Yes Neuro Surgical History: No Pertinent History Cardiac: No Pertinent History Respiratory: No Pertinent History Gastrointestinal: No Pertinent History Genitourinary: No Pertinent History Musculoskeletal: Orthopedic Surgery Female Surgical History: Other Other Surgical History: Excision of cyst on left wrist.Cervical circlage - Social History Smoking Status: Never smoker Exposure to second hand smoke: No Drug Use: none Patient Lives Alone: No Significant Family History: no pertinent family hx - Nursing Vital Signs Nursing Vital Signs: Initial Vital Signs Temperature 97.5 F 11/15/22 11:58 Pulse Rate 90 11/15/22 11:58 Respiratory Rate 20 11/15/22 11:58 Blood Pressure 144/90 11/15/22 11:58 O2 Sat by Pulse Oximetry 100 11/15/22 11:58 Pain Scale Pain Intensity 0 - Physical Exam General Appearance: mild distress, alert, anxiety Eye Exam: eyes nml inspection Ears, Nose, Throat Exam: hearing grossly normal, normal ENT inspection Neck Exam: normal inspection, full range of motion Respiratory Exam: normal breath sounds, lungs clear, respiratory distress, airway intact, No chest tenderness, No diminished breath sounds, No accessory muscle use, No crackles/rales, No rhonchi, No wheezing, No stridor, No pleural rub Cardiovascular/Chest Exam: normal heart sounds, tachycardia, No murmur, No edema Abdominal/Gastrointestinal Exam: soft, No tenderness, No distention, No guarding, No rebound Extremity Exam: non-tender, normal range of motion, normal inspection, normal capillary refill, no calf tenderness, No swelling Neurologic Exam: alert, 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, cooperative Skin Exam: normal color, warm, dry SpO2 Interpretation: normal O2 Delivery: Room Air - Course Nursing assessment & vital signs reviewed: Yes EKG Interpreted by Me: RATE (84), NORMAL AXIS, NORMAL INTERVALS, NORMAL QRS, NORMAL ST-T - Radiology Exams Chest X-ray Interpretation: Negative Ordered Tests: Active Orders 24 hr Category Date Time Status Upkeep Mechanic STAT Care 11/15/22 11:59 Active EKG-ER Only STAT Care 11/15/22 11:58 Active IV Insertion STAT Care 11/15/22 11:58 Active Pulse Oximetry (ED) STAT Care 11/15/22 11:58 Active CHEST 2 VIEWS (PA AND LAT) Stat Exams 11/15/22 11:59 Completed CBC W DIFF Stat Lab 11/15/22 12:03 Completed CMP Stat Lab 11/15/22 12:03 Completed D-DIMER QUANTITATIVE Stat Lab 11/15/22 12:03 Completed MAGNESIUM Stat Lab 11/15/22 12:03 Completed PHOSPHOROUS Stat Lab 11/15/22 12:03 Completed PROCALCITONIN Stat Lab 11/15/22 12:03 Completed TSH, 3RD Generation Stat Lab 11/15/22 12:03 Completed Medication Summary Discontinued Medications Generic Name Dose Route Start Last Admin Trade Name Freq PRN Reason Stop Dose Admin Lorazepam 2 mg 11/15/22 11:58 11/15/22 12:18 Lorazepam 2 Mg/1 Ml 2 Mg Vial IV 11/15/22 11:59 2 mg STAT ONE Administration Lorazepam Confirm 11/15/22 12:16 Lorazepam 2 Mg/1 Ml 2 Mg Vial Administered 11/15/22 12:17 Dose 2 mg .ROUTE .STK-MED ONE Potassium Chloride 40 meq 11/15/22 13:08 11/15/22 13:13 Potassium Chloride Tab 10 Meq Tab PO 11/15/22 13:09 40 meq STAT ONE Administration Potassium Chloride Confirm 11/15/22 13:13 Potassium Chloride Tab 10 Meq Tab Administered 11/15/22 13:14 Dose 40 meq PO .STK-MED ONE Lab/Rad Data: Laboratory Result Diagrams 11/15/22 12:03 11/15/22 12:03 Laboratory Results 11/15/22 11/15/22 11/15/22 Range/Units 12:03 12:03 12:03 WBC (4.0-10.5) x10^3/uL RBC (4.1-5.4) x10^6/uL Hgb (12.0-16.0) g/dL Hct (35-47) % MCV (78-100) fL MCH (26-32) pg MCHC (32-36) g/dL RDW (11.5-14.0) % Plt Count (150-450) x10^3/uL MPV (7.5-11.0) fL Gran % (36.0-66.0) % Immature Gran % (Auto) (0.00-0.4) % Nucleat RBC Rel Count (0.00-0.1) % Eos # (Auto) (0-0.5) x10^3/uL Immature Gran # (Auto) (0.00-0.03) x10^3u/L Absolute Lymphs (auto) (1.0-4.6) x10^3/uL Absolute Monos (auto) (0.0-1.3) x10^3/uL Absolute Nucleated RBC (0.00-0.01) x10^3u/L Lymphocytes % (24.0-44.0) % Monocytes % (0.0-12.0) % Eosinophils % (0.00-5.0) % Basophils % (0.0-0.4) % Absolute Granulocytes (1.4-6.9) x10^3/uL Basophils # (0-0.4) x10^3/uL D-Dimer < 0.19 (0.0-0.50) mg/L Sodium 138 (137-145) mmol/L Potassium 3.6 (3.5-5.1) mmol/L Chloride 103 (98-107) mmol/L Carbon Dioxide 26 (22-30) mmol/L Anion Gap 13.2 (5-15) MEQ/L BUN 10 (7-17) mg/dL Creatinine 0.77 (0.52-1.04) mg/dL Estimated GFR > 60.0 ML/MIN Glucose 100 (74-106) mg/dL Calcium 9.0 (8.4-10.2) mg/dL Phosphorus 3.2 (2.5-4.5) mg/dL Magnesium 2.0 (1.6-2.3) mg/dL Total Bilirubin 0.40 (0.2-1.3) mg/dL AST 25 (14-36) U/L ALT 24 (0-35) U/L Alkaline Phosphatase 92 (38-126) U/L Serum Total Protein 7.7 (6.3-8.2) g/dL Albumin 4.5 (3.5-5.0) g/dL Procalcitonin < 0.030 L (0.030-0.080) ng/mL TSH 3rd Generation 1.500 (0.47-4.68) mIU/L 11/15/22 Range/Units 12:03 WBC 6.1 (4.0-10.5) x10^3/uL RBC 4.94 (4.1-5.4) x10^6/uL Hgb 13.4 (12.0-16.0) g/dL Hct 41.8 (35-47) % MCV 84.6 (78-100) fL MCH 27.1 (26-32) pg MCHC 32.1 (32-36) g/dL RDW 12.7 (11.5-14.0) % Plt Count 248 (150-450) x10^3/uL MPV 9.9 (7.5-11.0) fL Gran % 68.7 H (36.0-66.0) % Immature Gran % (Auto) 0.2 (0.00-0.4) % Nucleat RBC Rel Count 0.0 (0.00-0.1) % Eos # (Auto) 0.16 (0-0.5) x10^3/uL Immature Gran # (Auto) 0.01 (0.00-0.03) x10^3u/L Absolute Lymphs (auto) 1.41 (1.0-4.6) x10^3/uL Absolute Monos (auto) 0.29 (0.0-1.3) x10^3/uL Absolute Nucleated RBC 0.00 (0.00-0.01) x10^3u/L Lymphocytes % 23.2 L (24.0-44.0) % Monocytes % 4.8 (0.0-12.0) % Eosinophils % 2.6 (0.00-5.0) % Basophils % 0.5 (0.0-0.4) % Absolute Granulocytes 4.18 (1.4-6.9) x10^3/uL Basophils # 0.03 (0-0.4) x10^3/uL D-Dimer (0.0-0.50) mg/L Sodium (137-145) mmol/L Potassium (3.5-5.1) mmol/L Chloride (98-107) mmol/L Carbon Dioxide (22-30) mmol/L Anion Gap (5-15) MEQ/L BUN (7-17) mg/dL Creatinine (0.52-1.04) mg/dL Estimated GFR ML/MIN Glucose (74-106) mg/dL Calcium (8.4-10.2) mg/dL Phosphorus (2.5-4.5) mg/dL Magnesium (1.6-2.3) mg/dL Total Bilirubin (0.2-1.3) mg/dL AST (14-36) U/L ALT (0-35) U/L Alkaline Phosphatase (38-126) U/L Serum Total Protein (6.3-8.2) g/dL Albumin (3.5-5.0) g/dL Procalcitonin (0.030-0.080) ng/mL TSH 3rd Generation (0.47-4.68) mIU/L - Progress Progress: improved Air Movement: good Progress Note: Patient doing much better since given Ativan. No longer SOB. O2 saturation remains 100% w/ normal HR. D-dimer wnl, CXR neg, K 3.6 so 40meq KCl given PO. Advised patient to stop Adipex until able to discuss resuming w/ PCP. agreed that her anxiety has been significantly worse since starting the Adipex. 11/15/22 13:25 Blood Culture(s) Obtained: No Antibiotics given: No Counseled pt/family regarding: lab results, diagnosis, need for follow-up, rad results Medical Desision Making - Risk of complications The pt has a mod risk of morbidity or mortality based on: Need for prescription drug management - Departure Departure Disposition: Home Clinical Impression: Panic attacks Condition: Good Critical Care Time: No Referrals: DEE ORNELAS NP [Primary Care Provider] - Follow up/PCP as directed Instructions: Panic Disorder (DC) Additional Instructions: Advised to STOP Adipex until f/u w/ PCP.
[2022-11-15] MEDS ORDERED: Ativan 2 MG/1 ML VIAL ONE (12:16)
[2022-11-15 12:20] LABS: Absolute Neutrophil Ct (ANC) 4.18 x10^3/uL (1.4-6.9); BASOPHIL % 0.5 % (0.0-0.4); Basophil (Absolute #) 0.03 x10^3/uL (0-0.4); Eosinophil % 2.6 % (0.00-5.0); Eosinophil (Absolute #) 0.16 x10^3/uL (0-0.5); Hematocrit 41.8 % (35-47); Hemoglobin 13.4 g/dL (12.0-16.0); IMMATURE GRAN # 0.01 x10^3u/L (0.00-0.03); IMMATURE GRAN % 0.2 % (0.00-0.4); Lymphocyte (Absolute #) 1.41 x10^3/uL (1.0-4.6); Lymphocytes % 23.2 % (24.0-44.0); Mean Cell Volume 84.6 fL (78-100); Mean Corpuscular Hemoglobin 27.1 pg (26-32); Mean Corpuscular Hgb Concent. 32.1 g/dL (32-36); Mean Platelet Volume 9.9 fL (7.5-11.0); Monocyte (Absolute #) 0.29 x10^3/uL (0.0-1.3); Monocytes % 4.8 % (0.0-12.0); Neutrophil % 68.7 % (36.0-66.0); Platelet Count 248 x10^3/uL (150-450); Red Blood Count 4.94 x10^6/uL (4.1-5.4); Red Cell Distribution Width 12.7 % (11.5-14.0); White Blood Count 6.1 x10^3/uL (4.0-10.5)
--- NOTE | 2022-11-15 12:58 | XRAY ---
Indication: Short of breath. Comparison: March 17, 2021 PA/lateral chest again demonstrates normal heart and lungs. Bony thorax intact with minimal scoliosis. No new/acute findings.
[2022-11-15 13:01] LABS: ALBUMIN 4.5 g/dL (3.5-5.0); ALKALINE PHOSPHATASE 92 U/L (38-126); ANION GAP 13.2 MEQ/L (5-15); BLOOD UREA NITROGEN 10 mg/dL (7-17); CHLORIDE 103 mmol/L (98-107); Carbon Dioxide 26 mmol/L (22-30); Creatinine 1 0.77 mg/dL (0.52-1.04); EST GLOMERULAR FILTRATION RATE > 60.0 ML/MIN; Glucose 100 mg/dL (74-106); PHOSPHOROUS 3.2 mg/dL (2.5-4.5); Potassium 3.6 mmol/L (3.5-5.1); SGOT/AST 25 U/L (14-36); SGPT/ALT 24 U/L (0-35); SODIUM 138 mmol/L (137-145); Total Protein 7.7 g/dL (6.3-8.2)
[2022-11-15] MEDS ORDERED: Klor Con PO ONE ×2 (13:08→13:13)
[2022-11-15 14:20] VITALS: BP 105/77; PULSE 89; O2SAT 99
== END 2022-11-15 14:54 | disposition home or self-care (01) ==
LOC: ED 11:56
DX: F41.0 Panic disorder [episodic paroxysmal anxiety] (principal); R06.02 Shortness of breath; Z79.899 Other long term (current) drug therapy; Z28.310 Unvaccinated for COVID-19
CPT/HCPCS: 36000; 36415; 71046; 80053; 83735; 84100; 84145; 84443; 85025; 85379; 93005; 93041; 94760; 96374; 99284; J2060; A9270-GY

== ENCOUNTER 2023-04-20 09:53 | Emergency (ER) | payer OTHER ==
[2023-04-20 10:13] VITALS: PULSE 77; RESP 18; TEMP 97; O2SAT 98
[2023-04-20] MEDS ORDERED: Sodium Chloride 0.9% 1000 ML 1,000 ML IV STA (10:22)
[2023-04-20] MEDS ORDERED: Zofran 4 MG/2 ML VIAL IV ONE (10:22)
[2023-04-20] MEDS ORDERED: Zofran 4 MG/2 ML VIAL ONE (10:32)
[2023-04-20] MEDS ORDERED: MORPHINE SULFATE 4 MG INJ ONE (10:32)
[2023-04-20] MEDS ORDERED: Sodium Chloride 0.9% 1000 ML 1,000 ML ONE (10:32)
--- NOTE | 2023-04-20 10:35 | ERPHSYRPT ---
- History of Present Illness Time Seen by Provider: 04/20/23 10:32 Historian: patient, family Exam Limitations: no limitations Patient Subjective Stated Complaint: c/o abdominal pain that started approx 30 mintues prior to coming to ER. States, "It feels like someone is ripping my guts out." Triage Nursing Assessment: Patient brought back to ER in w/c. SHe is alert and oriented. She is displaying s/s of pain; grimacing and gaurding abdomen. Skin tone normal. Physician History: c/o abdominal pain that started approx 30 mintues prior to coming to ER. States, "It feels like someone is ripping my guts out." Patient is 37-year-old female without significant past medical history of started having severe abdominal pain around periumbilical area as well as hypogastric area 30 minutes before she came to the emergency room. Pain started suddenly and she felt like that her guts are going to come out. She denies any nausea vomiting diarrhea or any vagina discharge. Timing/Duration: today Activities at Onset: none Quality: cramping Abdominal Pain Onset Location: periumbilical, suprapubic Pain Radiation: no radiation Severity of Pain-Max: moderate Severity of Pain-Current: moderate Modifying Factors: Improves With: nothing Associated Symptoms: denies symptoms Previous symptoms: no prior history Allergies/Adverse Reactions: naproxen Allergy (Verified 04/20/23 10:03) Rapid Heart Beat can't remember all Home Medications: Paroxetine HCl 20 mg [Paxil 20 MG] 20 mg PO HS 07/16/21 [History] Hx Tetanus, Diphtheria Vaccination/Date Given: No Hx Influenza Vaccination/Date Given: No Hx Pneumococcal Vaccination/Date Given: No Immunizations Up to Date: No Travel Risk - International Travel Have you traveled outside of the country in past 3 weeks: No - Coronavirus Screening Are you exhibiting any of the following symptoms?: No Close contact with a COVID-19 positive Pt in past 14-21 Days: No - Vaccine Status Have you recieved a Covid-19 vaccination: No - Review of Systems Constitutional: No Fever, No Chills Eyes: No Symptoms Ears, Nose, & Throat: No Symptoms Respiratory: No Cough, No Dyspnea Cardiac: No Chest Pain, No Edema, No Syncope Abdominal/Gastrointestinal: Abdominal Pain, No Nausea, No Vomiting, No Diarrhea Genitourinary Symptoms: No Dysuria Musculoskeletal: No Back Pain, No Neck Pain Skin: No Rash Neurological: No Dizziness, No Focal Weakness, No Sensory Changes Psychological: No Symptoms Endocrine: No Symptoms All Other Systems: Reviewed and Negative - Past Medical History Pertinent Past Medical History: Yes Neurological History: Other ENT History: No Pertinent History Cardiac History: Other Respiratory History: No Pertinent History Endocrine Medical History: No Pertinent History Musculoskeletal History: No Pertinent History GI Medical History: No Pertinent History, GERD History: No Pertinent History Psycho-Social History: Anxiety Female Reproductive Disorders: Abnormal Uterine Bleeding Other Medical History: NEUROCARDIAGENITIC SYNCOPE, MITRO VALVE PROLAPSE, R FOOT BONE SPUR - Past Surgical History Past Surgical History: Yes Neuro Surgical History: No Pertinent History Cardiac: No Pertinent History Respiratory: No Pertinent History Gastrointestinal: No Pertinent History Genitourinary: No Pertinent History Musculoskeletal: Orthopedic Surgery Female Surgical History: Other Other Surgical History: Excision of cyst on left wrist, Cervical circlage, ablasion - Social History Smoking Status: Never smoker Exposure to second hand smoke: No Drug Use: none Patient Lives Alone: No Significant Family History: no pertinent family hx - Female History Hx Last Menstrual Period: Doesn't have periods Hx Now: No (ablasion) - Nursing Vital Signs Nursing Vital Signs: Initial Vital Signs Temperature 97 F 04/20/23 10:04 Pulse Rate 77 04/20/23 10:04 Respiratory Rate 18 04/20/23 10:04 Blood Pressure 138/85 04/20/23 10:04 O2 Sat by Pulse Oximetry 98 04/20/23 10:04 Pain Scale Pain Intensity 9 - Physical Exam General Appearance: no apparent distress, alert Eye Exam: PERRL/EOMI, eyes nml inspection Ears, Nose, Throat Exam: normal ENT inspection, pharynx normal, moist mucous membranes Neck Exam: normal inspection, non-tender, supple, full range of motion Respiratory Exam: normal breath sounds, lungs clear, No respiratory distress Cardiovascular Exam: regular rate/rhythm, normal heart sounds Gastrointestinal/Abdomen Exam: soft, tenderness, No distention, No mass, No gu arding Back Exam: normal inspection, normal range of motion, No CVA tenderness, No vertebral tenderness Extremity Exam: normal inspection, normal range of motion, pelvis stable Neurologic Exam: alert, 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, cooperative, normal mood/affect, nml cerebellar function, sensation nml, No motor deficits Skin Exam: normal color, warm, dry SpO2: 98 - Course Nursing assessment & vital signs reviewed: Yes - CT Exams Abdomen/Pelvis CT Interpretation: Tele-radiologist Report Ordered Tests: Active Orders 24 hr Category Date Time Status ABDOMEN AND PELVIS W/0 CONTRAS [CT] Stat Exams 04/20/23 10:22 Completed AMYLASE Stat Lab 04/20/23 10:49 Completed CBC W DIFF Stat Lab 04/20/23 10:49 Completed CMP Stat Lab 04/20/23 10:49 Completed LIPASE Stat Lab 04/20/23 10:49 Completed UA W/RFX UR CULTURE Stat Lab 04/20/23 10:40 Completed Medication Summary Discontinued Medications Generic Name Dose Route Start Last Admin Trade Name Freq PRN Reason Stop Dose Admin Sodium Chloride 1,000 mls @ 999 mls/hr 04/20/23 10:22 04/20/23 10:38 Sodium Chloride 0.9% 1000 Ml IV 04/20/23 11:22 999 mls/hr .Q1H1M STA Administration Sodium Chloride Confirm 04/20/23 10:32 Sodium Chloride 0.9% 1000 Ml Administered 04/20/23 10:33 Dose 1,000 mls @ ud .ROUTE .STK-MED ONE Morphine Sulfate 4 mg 04/20/23 10:22 04/20/23 10:38 Morphine Sulfate 4 Mg/Ml Injection IV 04/20/23 10:23 4 mg STAT ONE Administration Morphine Sulfate Confirm 04/20/23 10:32 Morphine Sulfate 4 Mg/Ml Injection Administered 04/20/23 10:33 Dose 4 mg .ROUTE .STK-MED ONE Ondansetron HCl 4 mg 04/20/23 10:22 04/20/23 10:38 Ondansetron Hcl 4 Mg/2 Ml Vial IV 04/20/23 10:23 4 mg STAT ONE Administration Ondansetron HCl Confirm 04/20/23 10:32 Ondansetron Hcl 4 Mg/2 Ml Vial Administered 04/20/23 10:33 Dose 4 mg .ROUTE .STK-MED ONE Lab/Rad Data: Laboratory Result Diagrams 04/20/23 10:49 04/20/23 10:49 Laboratory Results 04/20/23 04/20/23 04/20/23 Range/Units 10:49 10:49 10:40 WBC 4.9 (4.0-10.5) x10^3/uL RBC 4.47 (4.1-5.4) x10^6/uL Hgb 12.3 (12.0-16.0) g/dL Hct 37.9 (35-47) % MCV 84.8 (78-100) fL MCH 27.5 (26-32) pg MCHC 32.5 (32-36) g/dL RDW 13.1 (11.5-14.0) % Plt Count 214 (150-450) x10^3/uL MPV 10.2 (7.5-11.0) fL Gran % 49.0 (36.0-66.0) % Immature Gran % (Auto) 0.2 (0.00-0.4) % Nucleat RBC Rel Count 0.0 (0.00-0.1) % Eos # (Auto) 0.22 (0-0.5) x10^3/uL Immature Gran # (Auto) 0.01 (0.00-0.03) x10^3u/L Absolute Lymphs (auto) 1.84 (1.0-4.6) x10^3/uL Absolute Monos (auto) 0.42 (0.0-1.3) x10^3/uL Absolute Nucleated RBC 0.00 (0.00-0.01) x10^3u/L Lymphocytes % 37.2 (24.0-44.0) % Monocytes % 8.5 (0.0-12.0) % Eosinophils % 4.5 (0.00-5.0) % Basophils % 0.6 (0.0-0.4) % Absolute Granulocytes 2.42 (1.4-6.9) x10^3/uL Basophils # 0.03 (0-0.4) x10^3/uL Sodium 136 L (137-145) mmol/L Potassium 3.6 (3.5-5.1) mmol/L Chloride 104 (98-107) mmol/L Carbon Dioxide 23 (22-30) mmol/L Anion Gap 12.5 (5-15) MEQ/L BUN 13 (7-17) mg/dL Creatinine 0.67 (0.52-1.04) mg/dL Estimated GFR > 60.0 ML/MIN Glucose 95 (74-106) mg/dL Calcium 8.7 (8.4-10.2) mg/dL Total Bilirubin 0.60 (0.2-1.3) mg/dL AST 25 (14-36) U/L ALT 30 (0-35) U/L Alkaline Phosphatase 77 (38-126) U/L Serum Total Protein 7.0 (6.3-8.2) g/dL Albumin 4.0 (3.5-5.0) g/dL Amylase 62 (30-110) U/L Lipase 127 (23-300) U/L Urine Color Yellow (Yellow) Urine Appearance Clear (Clear) Urine pH 5.5 (4.6-8.0) Ur Specific [place] 1.015 (1.005-1.030) Urine Protein Negative (Negative) Urine Glucose (UA) Negative (Negative) mg/dL Urine Ketones Negative (Negative) Urine Blood Negative (Negative) Urine Nitrite Negative (Negative) Urine Bilirubin Negative (Negative) Urine Urobilinogen 0.2 (0.2) mg/dL Ur Leukocyte Esterase Negative (Negative) U Hyaline Cast (Auto) NONE SEEN (0-2) /LPF Urine Microscopic RBC 0-2 (0-5) /HPF Urine Microscopic WBC 0-2 (0-5) /HPF Ur Epithelial Cells None Seen (None Seen) /HPF Urine Bacteria None Seen (None Seen) /HPF Urine Culture Reflexed NO (NO) CT/ABDOMEN AND PELVIS W/0 CONTRAS CLINICAL HISTORY:periumbilical abdominal pain COMPARISON:None TECHNIQUE:CT scan of the abdomen and pelvis was performed without IV contrast. Coronal and sagittal reconstructions were performed. FINDINGS: Mild to moderate fluid seen in cul de sac. 2.8 x 3.3cm simple left adnexal cyst seen. Few prominent para-aortic and mesenteric lymph nodes are seen. Liver is normal size and shape and with regular margins.No focal or diffuse parenchymal abnormality. No hepatic mass is identified. The portal vein, intrahepatic biliary radicals and the bile ducts are normal. Gall bladder appear normal with wall thickness. No radio-opaque calculus or pericholecystic fluid was identified. Common bile appears normal. Pancreas appears normal. Spleen normal in size, multiple tiny calcific foci are seen scattered in the spleen likely benign, one of these measures 4.06 mm. Both adrenal glands are unremarkable. no evidence of mass lesion seen. Both kidneys are normal in size, shape and orientation. No calculi, cyst mass or hydronephrosis seen on either side. Both ureters and urinary bladder appear normal. Visualized gastroesophageal junction, stomach, small and large bowel loops appear unremarkable except sigmoid colonic diverticulosis without definite evidence of diverticulitis. The appendix is separately visualized and appears unremarkable. Few phleboliths seen. Visualized lung bases appear unremarkable. Visualized thoracic and lumbar spine appears normal. IMPRESSION: 1. Mild to moderate fluid seen in cul de sac. 2. 2.8 x 3.3cm simple left adnexal cyst, would recommend follow-up ultrasound 3. Few prominent para-aortic and mesenteric lymph nodes seen. 4. The appendix is separately visualized and appears unremarkable. 5. Both kidneys are normal in size, shape and orientation. No calculi, cyst mass or hydronephrosis seen on either side. - Progress Progress: improved, pain not gone completely Counseled pt/family regarding: lab results, diagnosis, need for follow-up, rad results Medical Desision Making - Independent Historian Additional History obtained from: Spouse - Discussion of managment Agreed on:: Treatment plan, need for follow-up - Diagnostic Testing Diagnostic test were ordered, analyzed, and reviewed by me: Yes Radiological Interpretation: Teleradiologist Report - Risk of complications Low Risk: Low risk of morbidity from additional dx testing or treatment - Departure Departure Disposition: Home Clinical Impression: Ruptured cyst of left ovary Condition: Stable Critical Care Time: No Referrals: DEE ORNELAS, JANNA [Primary Care Provider] - Follow up/PCP as directed Instructions: Ovarian Cyst (DC), Ovarian Cyst ED Additional Instructions: Discharge/Care Plan VALERYDORONDIMITRI EFRAÍN was seen on 04/20/23 in the Emergency Room. The patient was counseled regarding Diagnosis,Lab results, Imaging studies, need for follow up and when to return to the Emergency Room. Prescriptions given: Discharge Note I have spoken with the patient and/or caregivers. I have explained the patient's condition, diagnosis and treatment plan based on the information available to me at this time. I have answered the patient's and/or caregiver's questions and addressed any concerns. The patient and/or caregivers have as good understanding of the patient's diagnosis, condition and treatment plan as can be expected at this point. The vital signs have been stable. The patient's condition is stable and appropriate for discharge from the emergency department. The patient will pursue further outpatient evaluation with the primary care physician or other designated or consulting physician as outlined in the discharge instructions. The patient and/or caregivers are agreeable to this plan of care and follow-up instructions have been explained in detail. The patient and/or caregivers have received these instruction. The patient/and or caregivers are aware that any significant change in condition or worsening of symptoms should prompt an immediate return to this or the closest emergency department or call 911. VALERYDIMITRI SAL was seen on 04/20/23 n the Emergency Room. At that time you were treated for an emergent condition, during your visit Laboratory, Radiology and/or other procedures may have been ordered. It is very important that you follow-up with your Primary Care Physician DEE ORNELAS within the next 24-48 hours to review your Emergency Room visit and the final results of testing that was ordered. Some test results such as Urine Cultures, Blood Cultures, and other cultures if ordered will not be finalized for 24-48 hours. If you do not have a Primary Care Provider please call the medical records department at [phone] ext [phone] to obtain a copy of your results or you may sign into our patient portal to obtain these results by visiting us @ [email or web address] and completing the following steps: 1. Click on the Patient Portal link 2. Click the Patient Self Enrollment Link to complete the enrollment form and entering your 3. Once the enrollment form is completed you will receive an email with a temporary ID and password at the email address you provided. 4. Next choose a user name and password. Your user name must be at least 4 characters long and your password must be at least 4 characters long. 5. Choose a security question from the list and provide your answer to the question. If you already have signed into the Health Portal you may access your Health Care Information 14/04 by the following steps: 1. Login to our website @ [email or web address] 2. Enter your original user name and password. FAQS The [facility] Portal is an online tool that contains your Lab Results, Radiology Reports, Visit History, Discharge Instructions and Health Summary Lab and Radiology Results will not be available for 72 hours on the portal. The Portal is a secure site, passwords are encryted and URLs are re-written so they cannot be copied and pasted. You and authorized family members are the only ones who can access your Portal. Also there is a timeout feature that protects your information if you leave the Portal page open. If you have technical difficulty please use the Contact Us link on the page this will allow you to submit any questions you have regarding the Portal or you may contact the Medical Record Department at [phone] ext [phone].
[2023-04-20] MEDS: MORPHINE SULFATE 4 MG INJ IV ONE ×2 (10:38→11:48)
[2023-04-20 10:52] LABS: Absolute Neutrophil Ct (ANC) 2.42 x10^3/uL (1.4-6.9); BASOPHIL % 0.6 % (0.0-0.4); Basophil (Absolute #) 0.03 x10^3/uL (0-0.4); Eosinophil % 4.5 % (0.00-5.0); Eosinophil (Absolute #) 0.22 x10^3/uL (0-0.5); Hematocrit 37.9 % (35-47); Hemoglobin 12.3 g/dL (12.0-16.0); IMMATURE GRAN # 0.01 x10^3u/L (0.00-0.03); IMMATURE GRAN % 0.2 % (0.00-0.4); Lymphocyte (Absolute #) 1.84 x10^3/uL (1.0-4.6); Lymphocytes % 37.2 % (24.0-44.0); Mean Cell Volume 84.8 fL (78-100); Mean Corpuscular Hemoglobin 27.5 pg (26-32); Mean Corpuscular Hgb Concent. 32.5 g/dL (32-36); Mean Platelet Volume 10.2 fL (7.5-11.0); Monocyte (Absolute #) 0.42 x10^3/uL (0.0-1.3); Monocytes % 8.5 % (0.0-12.0); Platelet Count 214 x10^3/uL (150-450); Red Blood Count 4.47 x10^6/uL (4.1-5.4); Red Cell Distribution Width 13.1 % (11.5-14.0); White Blood Count 4.9 x10^3/uL (4.0-10.5)
[2023-04-20 11:07] LABS: ALKALINE PHOSPHATASE 77 U/L (38-126); AMYLASE 62 U/L (30-110); ANION GAP 12.5 MEQ/L (5-15); BLOOD UREA NITROGEN 13 mg/dL (7-17); CHLORIDE 104 mmol/L (98-107); Calcium 8.7 mg/dL (8.4-10.2); Carbon Dioxide 23 mmol/L (22-30); Creatinine 1 0.67 mg/dL (0.52-1.04); EST GLOMERULAR FILTRATION RATE > 60.0 ML/MIN; Glucose 95 mg/dL (74-106); LIPASE 127 U/L (23-300); Potassium 3.6 mmol/L (3.5-5.1); SGOT/AST 25 U/L (14-36); SGPT/ALT 30 U/L (0-35); SODIUM 136 mmol/L (137-145)
[2023-04-20 11:07] LABS: Appearance Clear (Clear); Bacteria None Seen /HPF (None Seen); Bilirubin Negative (Negative); Blood Negative (Negative); Epithelial Cells None Seen /HPF (None Seen); Glucose, Urine Negative (Negative); Hyaline Casts NONE SEEN /LPF (0-2); Ketones Negative (Negative); Leukocyte Esterase Negative (Negative); Nitrite Negative (Negative); Ph 5.5 (4.6-8.0); Protein,Urine Dip Negative (Negative); RBC 0-2 /HPF (0-5); Specific Gravity 1.015 (1.005-1.030); Urobilinogen 0.2 mg/dL (0.2); WBC 0-2 /HPF (0-5)
[2023-04-20 11:10] LABS: ADD URINE CULTURE? NO (NO)
--- NOTE | 2023-04-20 11:25 | XRAY ---
CLINICAL HISTORY:periumbilical abdominal pain COMPARISON:None TECHNIQUE:CT scan of the abdomen and pelvis was performed without IV contrast. Coronal and sagittal reconstructions were performed. FINDINGS: Mild to moderate fluid seen in cul de sac. 2.8 x 3.3cm simple left adnexal cyst seen. Few prominent para-aortic and mesenteric lymph nodes are seen. Liver is normal size and shape and with regular margins.No focal or diffuse parenchymal abnormality. No hepatic mass is identified. The portal vein, intrahepatic biliary radicals and the bile ducts are normal. Gall bladder appear normal with wall thickness. No radio-opaque calculus or pericholecystic fluid was identified. Common bile appears normal. Pancreas appears normal. Spleen normal in size, multiple tiny calcific foci are seen scattered in the spleen likely benign, one of these measures 4.06 mm. Both adrenal glands are unremarkable. no evidence of mass lesion seen. Both kidneys are normal in size, shape and orientation. No calculi, cyst mass or hydronephrosis seen on either side. Both ureters and urinary bladder appear normal. Visualized gastroesophageal junction, stomach, small and large bowel loops appear unremarkable except sigmoid colonic diverticulosis without definite evidence of diverticulitis. The appendix is separately visualized and appears unremarkable. Few phleboliths seen. Visualized lung bases appear unremarkable. Visualized thoracic and lumbar spine appears normal. IMPRESSION: 1. Mild to moderate fluid seen in cul de sac. 2. 2.8 x 3.3cm simple left adnexal cyst, would recommend follow-up ultrasound 3. Few prominent para-aortic and mesenteric lymph nodes seen. 4. The appendix is separately visualized and appears unremarkable. 5. Both kidneys are normal in size, shape and orientation. No calculi, cyst mass or hydronephrosis seen on either side. Electronically Signed by: Darion Schultz MD. (04/20/2023 10:24:23 FLOOR COVERING INSTALLER)
[2023-04-20 11:54] VITALS: BP 118/72
== END 2023-04-20 11:54 | disposition home or self-care (01) ==
LOC: ED 09:53
DX: N83.202 Unspecified ovarian cyst, left side (principal); K66.1 Hemoperitoneum; R10.33 Periumbilical pain; Z79.899 Other long term (current) drug therapy; Z28.310 Unvaccinated for COVID-19
CPT/HCPCS: 36000; 36415; 74176; 80053; 81001; 82150; 83690; 85025; 96374; 99284; J2270; J2405

== ENCOUNTER 2023-10-17 15:46 | Emergency (ER) | payer OTHER ==
[2023-10-17] MEDS ORDERED: TYLENOL 325 MG PO ONE (16:02)
[2023-10-17] MEDS ORDERED: TORAdol 30 mg Injection IV ONE (16:02)
[2023-10-17] MEDS ORDERED: Sodium Chloride 0.9% 1000 ML 1,000 ML IV STA (16:02)
--- NOTE | 2023-10-17 16:08 | ERPHSYRPT ---
- History of Present Illness Time Seen by Provider: 10/17/23 16:04 Historian: patient Physician History: The patient is a 37-year-old who presents with complaints of right flank pain. Is been going on for past 5 days. Is gotten worse over the past 24 hours. It wraps around to the right lower quadrant. Timing/Duration: day(s) (5) Allergies/Adverse Reactions: naproxen Allergy (Verified 10/17/23 15:56) Rapid Heart Beat can't remember all Home Medications: Paroxetine HCl 20 mg [Paxil 20 MG] 20 mg PO HS 07/16/21 [History] Lorazepam 1 mg [Ativan 1 MG] 1 mg PO TID PRN PRN 10/17/23 [History] Semaglutide [Ozempic] 2 mg SQ WEEKLY 10/17/23 [History] Hx Tetanus, Diphtheria Vaccination/Date Given: No Hx Influenza Vaccination/Date Given: No Hx Pneumococcal Vaccination/Date Given: No Travel Risk - Vaccine Status Have you recieved a Covid-19 vaccination: No - Review of Systems Constitutional: No Fever, No Chills Eyes: No Symptoms Ears, Nose, & Throat: No Symptoms Respiratory: No Cough, No Dyspnea Cardiac: No Chest Pain, No Edema, No Syncope Abdominal/Gastrointestinal: Abdominal Pain, No Nausea, No Vomiting, No Diarrhea Genitourinary Symptoms: Flank Pain, No Dysuria Musculoskeletal: No Back Pain, No Neck Pain Skin: No Rash Neurological: No Dizziness, No Focal Weakness, No Sensory Changes Psychological: No Symptoms Endocrine: No Symptoms All Other Systems: Reviewed and Negative - Past Medical History Pertinent Past Medical History: Yes Neurological History: Other ENT History: No Pertinent History Cardiac History: Other Respiratory History: No Pertinent History Endocrine Medical History: No Pertinent History Musculoskeletal History: No Pertinent History GI Medical History: No Pertinent History, GERD History: No Pertinent History Psycho-Social History: Anxiety Female Reproductive Disorders: Abnormal Uterine Bleeding Other Medical History: NEUROCARDIAGENITIC SYNCOPE, MITRO VALVE PROLAPSE, R FOOT BONE SPUR - Past Surgical History Past Surgical History: Yes Neuro Surgical History: No Pertinent History Cardiac: No Pertinent History Respiratory: No Pertinent History Gastrointestinal: No Pertinent History Genitourinary: No Pertinent History Musculoskeletal: Orthopedic Surgery Female Surgical History: Other Other Surgical History: Excision of cyst on left wrist, Cervical circlage, ablasion - Social History Smoking Status: Never smoker Exposure to second hand smoke: No Drug Use: none Patient Lives Alone: No Significant Family History: no pertinent family hx - Female History Hx Now: No - Nursing Vital Signs Nursing Vital Signs: Initial Vital Signs Temperature 98.0 F 10/17/23 15:55 Pulse Rate 79 10/17/23 15:55 Respiratory Rate 20 10/17/23 15:55 Blood Pressure 141/96 10/17/23 15:55 O2 Sat by Pulse Oximetry 100 10/17/23 15:55 Pain Scale Pain Intensity 9 - Physical Exam General Appearance: no apparent distress, alert Eye Exam: PERRL/EOMI, eyes nml inspection Ears, Nose, Throat Exam: normal ENT inspection, pharynx normal, moist mucous membranes Neck Exam: normal inspection, non-tender, supple, full range of motion Respiratory Exam: normal breath sounds, lungs clear, No respiratory distress Cardiovascular Exam: regular rate/rhythm, normal heart sounds Gastrointestinal/Abdomen Exam: soft, No tenderness, No mass Back Exam: normal inspection, normal range of motion, No CVA tenderness, No vertebral tenderness Extremity Exam: normal inspection, normal range of motion, pelvis stable Neurologic Exam: alert, 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, cooperative, normal mood/affect, nml cerebellar function, sensation nml, No motor deficits Skin Exam: normal color, warm, dry - Course Nursing assessment & vital signs reviewed: Yes Ordered Tests: Active Orders 24 hr Category Date Time Status IV Insertion STAT Care 10/17/23 16:02 Active ABDOMEN AND PELVIS W/0 CONTRAS [CT] Stat Exams 10/17/23 16:01 Taken AMYLASE Stat Lab 10/17/23 16:05 Completed CBC W DIFF Stat Lab 10/17/23 16:05 Completed CMP Stat Lab 10/17/23 16:05 Completed HCG QUALITATIVE, SERUM Stat Lab 10/17/23 16:05 Completed LIPASE Stat Lab 10/17/23 16:05 Completed UA W/RFX UR CULTURE Stat Lab 10/17/23 16:02 Completed Medication Summary Discontinued Medications Generic Name Dose Route Start Last Admin Trade Name Freq PRN Reason Stop Dose Admin Acetaminophen 975 mg 10/17/23 16:02 10/17/23 16:22 Acetaminophen 325 Mg Tablet PO 10/17/23 16:03 975 mg STAT ONE Administration Acetaminophen Confirm 10/17/23 16:18 Acetaminophen 325 Mg Tablet Administered 10/17/23 16:19 Dose 975 mg .ROUTE .STK-MED ONE Sodium Chloride 1,000 mls @ 999 mls/hr 10/17/23 16:02 10/17/23 17:55 Sodium Chloride 0.9% 1000 Ml IV 10/17/23 17:02 Infused .Q1H1M STA Infusion Sodium Chloride Confirm 10/17/23 16:18 Sodium Chloride 0.9% 1000 Ml Administered 10/17/23 16:19 Dose 1,000 mls @ ud .ROUTE .STK-MED ONE Ketorolac Tromethamine 15 mg 10/17/23 16:02 10/17/23 16:21 Ketorolac Tromethamine 30 Mg/Ml Inj IV 10/17/23 16:03 15 mg STAT ONE Administration Ketorolac Tromethamine Confirm 10/17/23 16:18 Ketorolac Tromethamine 30 Mg/Ml Inj Administered 10/17/23 16:19 Dose 30 mg .ROUTE .STK-MED ONE Lab/Rad Data: Laboratory Result Diagrams 10/17/23 16:05 10/17/23 16:05 Laboratory Results 10/17/23 10/17/23 10/17/23 Range/Units 16:05 16:05 16:05 WBC 6.3 (4.0-10.5) x10^3/uL RBC 4.63 (4.1-5.4) x10^6/uL Hgb 12.8 (12.0-16.0) g/dL Hct 39.9 (35-47) % MCV 86.2 (78-100) fL MCH 27.6 (26-32) pg MCHC 32.1 (32-36) g/dL RDW 12.5 (11.5-14.0) % Plt Count 285 (150-450) x10^3/uL MPV 9.6 (7.5-11.0) fL Gran % 53.1 (36.0-66.0) % Immature Gran % (Auto) 0.2 (0.00-0.4) % Nucleat RBC Rel Count 0.0 (0.00-0.1) % Eos # (Auto) 0.27 (0-0.5) x10^3/uL Immature Gran # (Auto) 0.01 (0.00-0.03) x10^3u/L Absolute Lymphs (auto) 2.28 (1.0-4.6) x10^3/uL Absolute Monos (auto) 0.36 (0.0-1.3) x10^3/uL Absolute Nucleated RBC 0.00 (0.00-0.01) x10^3u/L Lymphocytes % 36.2 (24.0-44.0) % Monocytes % 5.7 (0.0-12.0) % Eosinophils % 4.3 (0.00-5.0) % Basophils % 0.5 (0.0-0.4) % Absolute Granulocytes 3.34 (1.4-6.9) x10^3/uL Basophils # 0.03 (0-0.4) x10^3/uL Sodium 136 L (137-145) mmol/L Potassium 3.8 (3.5-5.1) mmol/L Chloride 101 (98-107) mmol/L Carbon Dioxide 29 (22-30) mmol/L Anion Gap 10.2 (5-15) MEQ/L BUN 13 (7-17) mg/dL Creatinine 0.80 (0.52-1.04) mg/dL Estimated GFR 97.3 ML/MIN Glucose 85 (74-106) mg/dL Calcium 9.4 (8.4-10.2) mg/dL Total Bilirubin 0.50 (0.2-1.3) mg/dL AST 21 (14-36) U/L ALT 17 (0-35) U/L Alkaline Phosphatase 74 (38-126) U/L Serum Total Protein 7.7 (6.3-8.2) g/dL Albumin 4.5 (3.5-5.0) g/dL Amylase 66 (30-110) U/L Lipase 119 (23-300) U/L Serum HCG, Qual NEGATIVE (NEGATIVE) Urine Color (Yellow) Urine Appearance (Clear) Urine pH (4.6-8.0) Ur Specific [place] (1.005-1.030) Urine Protein (Negative) Urine Glucose (UA) (Negative) mg/dL Urine Ketones (Negative) Urine Blood (Negative) Urine Nitrite (Negative) Urine Bilirubin (Negative) Urine Urobilinogen (0.2) mg/dL Ur Leukocyte Esterase (Negative) U Hyaline Cast (Auto) (0-2) /LPF Urine Microscopic RBC (0-5) /HPF Urine Microscopic WBC (0-5) /HPF Ur Epithelial Cells (None Seen) /HPF Urine Bacteria (None Seen) /HPF Urine Culture Reflexed (NO) 10/17/23 Range/Units 16:02 WBC (4.0-10.5) x10^3/uL RBC (4.1-5.4) x10^6/uL Hgb (12.0-16.0) g/dL Hct (35-47) % MCV (78-100) fL MCH (26-32) pg MCHC (32-36) g/dL RDW (11.5-14.0) % Plt Count (150-450) x10^3/uL MPV (7.5-11.0) fL Gran % (36.0-66.0) % Immature Gran % (Auto) (0.00-0.4) % Nucleat RBC Rel Count (0.00-0.1) % Eos # (Auto) (0-0.5) x10^3/uL Immature Gran # (Auto) (0.00-0.03) x10^3u/L Absolute Lymphs (auto) (1.0-4.6) x10^3/uL Absolute Monos (auto) (0.0-1.3) x10^3/uL Absolute Nucleated RBC (0.00-0.01) x10^3u/L Lymphocytes % (24.0-44.0) % Monocytes % (0.0-12.0) % Eosinophils % (0.00-5.0) % Basophils % (0.0-0.4) % Absolute Granulocytes (1.4-6.9) x10^3/uL Basophils # (0-0.4) x10^3/uL Sodium (137-145) mmol/L Potassium (3.5-5.1) mmol/L Chloride (98-107) mmol/L Carbon Dioxide (22-30) mmol/L Anion Gap (5-15) MEQ/L BUN (7-17) mg/dL Creatinine (0.52-1.04) mg/dL Estimated GFR ML/MIN Glucose (74-106) mg/dL Calcium (8.4-10.2) mg/dL Total Bilirubin (0.2-1.3) mg/dL AST (14-36) U/L ALT (0-35) U/L Alkaline Phosphatase (38-126) U/L Serum Total Protein (6.3-8.2) g/dL Albumin (3.5-5.0) g/dL Amylase (30-110) U/L Lipase (23-300) U/L Serum HCG, Qual (NEGATIVE) Urine Color Yellow (Yellow) Urine Appearance Clear (Clear) Urine pH 6.5 (4.6-8.0) Ur Specific [place] 1.015 (1.005-1.030) Urine Protein Negative (Negative) Urine Glucose (UA) Negative (Negative) mg/dL Urine Ketones Negative (Negative) Urine Blood Negative (Negative) Urine Nitrite Negative (Negative) Urine Bilirubin Negative (Negative) Urine Urobilinogen 0.2 (0.2) mg/dL Ur Leukocyte Esterase Negative (Negative) U Hyaline Cast (Auto) NONE SEEN (0-2) /LPF Urine Microscopic RBC 0-2 (0-5) /HPF Urine Microscopic WBC 0-2 (0-5) /HPF Ur Epithelial Cells Rare (None Seen) /HPF Urine Bacteria None Seen (None Seen) /HPF Urine Culture Reflexed NO (NO) CT scan without contrast read by the radiologist showed no acute process. CT was normal. No appendicitis or obstructing stone - Progress Progress Note: 10/17/23 16:06 Patient presents with flank pain likely secondary to renal colic from likely non-obstructed non infected kidney stone. Given history, exam, and work up I have low suspicion for atypical appendicitis, genital torsion, acute cholecystitis, AAA, infected obstructed stone, pyelonephritis, or other emergent intraabdominal pathology. Symptoms and UA indicate no infection. BMP witohut ev idence of MARCIAL. Pain treated in ED with _toradol_. Patient appropriate for discharge with outpatient follow-up and _toradol_ for pain Although the initial diagnosis thought to be renal colic CT did not show any signs of an infection pyelonephritis appendicitis or obstructing ureterolithiasis. The patient will follow-up with primary care. The patient be discharged on Toradol. This could be musculoskeletal back pain or flank pain of unknown cause. 10/17/23 18:07 10/17/23 18:10 The patient was discharged on Toradol. The patient states an allergy to naproxen although this is her heart was racing. She was given Toradol here. She tolerated well. The patient is well appearing, and nontoxic. After careful history, physical exam, vital signs, and review of any laboratory or diagnostic data as ordered, I made the decision the patient does not appear to have a life-threatening illness and can be carefully discharged with close follow-up. The abdominal exam is soft and non-peritoneal, and I think serious pathology such as appendicitis, AAA, and cholecystitis are less likely. I do not feel any further imaging or laboratory data is needed at this time. I have discussed with the patient that they will need a repeat abdominal exam in 12-24 hours to assure they do not deteriorate. I have given written and verbal discharge instructions, as well as the current differential diagnosis. The nursing staff has reiterated the disposition plan as well. - Departure Departure Disposition: Home Clinical Impression: Flank pain, acute, Back pain Condition: Stable Critical Care Time: No Referrals: DEE ORNELAS NP [Primary Care Provider] - Follow up/PCP as directed Instructions: Flank Pain, Low back pain in adults, Abdominal Pain, Adult ED Additional Instructions: Thank you for choosing our Emergency Department for your healthcare! Please take your medicines prescribed as directed and be assured that you follow up with the physician provided or your PCP in the next 1-2 days to assure you are improving. All medical problems cannot be reasonably diagnosed in your ED visit today. Return for any changes or concerns, including if your condition does not improve or you are unable to obtain follow-up. Some final results, including radiology reports, do not return the same day, but are available on the patient portal or can be obtained through your PCP. Prescriptions: Ketorolac Trometh 10 mg Tab [TORAdol 10 MG TABLET] 10 mg PO Q6-8HPRN PRN #12 tablet PRN Reason: Mild To Moderate Pain
[2023-10-17 16:10] VITALS: TEMP 98
[2023-10-17 16:17] VITALS: BP 131/83; PULSE 96; RESP 16; O2SAT 97
[2023-10-17] MEDS ORDERED: Sodium Chloride 0.9% 1000 ML 1,000 ML ONE (16:18)
[2023-10-17] MEDS ORDERED: TYLENOL 325 MG ONE (16:18)
[2023-10-17] MEDS ORDERED: TORAdol 30 mg Injection ONE (16:18)
[2023-10-17 16:20] LABS: Absolute Neutrophil Ct (ANC) 3.34 x10^3/uL (1.4-6.9); BASOPHIL % 0.5 % (0.0-0.4); Basophil (Absolute #) 0.03 x10^3/uL (0-0.4); Eosinophil % 4.3 % (0.00-5.0); Eosinophil (Absolute #) 0.27 x10^3/uL (0-0.5); Hematocrit 39.9 % (35-47); Hemoglobin 12.8 g/dL (12.0-16.0); IMMATURE GRAN # 0.01 x10^3u/L (0.00-0.03); IMMATURE GRAN % 0.2 % (0.00-0.4); Lymphocyte (Absolute #) 2.28 x10^3/uL (1.0-4.6); Lymphocytes % 36.2 % (24.0-44.0); Mean Cell Volume 86.2 fL (78-100); Mean Corpuscular Hemoglobin 27.6 pg (26-32); Mean Corpuscular Hgb Concent. 32.1 g/dL (32-36); Mean Platelet Volume 9.6 fL (7.5-11.0); Monocyte (Absolute #) 0.36 x10^3/uL (0.0-1.3); Monocytes % 5.7 % (0.0-12.0); Neutrophil % 53.1 % (36.0-66.0); Platelet Count 285 x10^3/uL (150-450); Red Blood Count 4.63 x10^6/uL (4.1-5.4); Red Cell Distribution Width 12.5 % (11.5-14.0); White Blood Count 6.3 x10^3/uL (4.0-10.5)
[2023-10-17 16:36] LABS: ALBUMIN 4.5 g/dL (3.5-5.0); ANION GAP 10.2 MEQ/L (5-15); BILIRUBIN,TOTAL 0.5 mg/dL (0.2-1.3); Calcium 9.4 mg/dL (8.4-10.2); Creatinine 1 0.8 mg/dL (0.52-1.04); EST GLOMERULAR FILTRATION RATE 97.3 ML/MIN; HCG SERUM TEST NEGATIVE (NEGATIVE); Potassium 3.8 mmol/L (3.5-5.1); Total Protein 7.7 g/dL (6.3-8.2)
[2023-10-17 17:32] LABS: Appearance Clear (Clear); Bacteria None Seen /HPF (None Seen); Bilirubin Negative (Negative); Blood Negative (Negative); Epithelial Cells Rare /HPF (None Seen); Glucose, Urine Negative (Negative); Hyaline Casts NONE SEEN /LPF (0-2); Ketones Negative (Negative); Leukocyte Esterase Negative (Negative); Nitrite Negative (Negative); Ph 6.5 (4.6-8.0); Protein,Urine Dip Negative (Negative); RBC 0-2 /HPF (0-5); Specific Gravity 1.015 (1.005-1.030); Urobilinogen 0.2 mg/dL (0.2); WBC 0-2 /HPF (0-5)
[2023-10-17 17:33] LABS: ADD URINE CULTURE? NO (NO)
--- NOTE | 2023-10-17 19:12 | XRAY ---
Indication: Right flank pain 5 days. Multiple contiguous axial images obtained through abdomen and pelvis without contrast using renal stone protocol. Comparison: April 20, 2023. Lung bases clear. Heart not enlarged. No renal calculus or evidence for obstructive uropathy neither system. Again 2.5 cm dominant left ovary cyst. No free fluid/air. Noncontrasted stomach and bowel loops appear nonobstructed again with normal appendix. There remains incidental splenic calcified granulomas. Remaining liver, gallbladder, pancreas, spleen, adrenal glands, kidneys, ureters, bladder, uterus, and aorta are unremarkable for noncontrast exam. Osseous structures intact. Impression: Continued negative renal calculus or evidence for obstructive uropathy. No new/acute findings on this noncontrast exam.
== END 2023-10-17 18:23 | disposition home or self-care (01) ==
LOC: ED 15:46
DX: R10.9 Unspecified abdominal pain (principal); M54.9 Dorsalgia, unspecified; Z79.85 Long-term (current) use of injectable non-insulin antidiabetic drugs; Z79.899 Other long term (current) drug therapy; Z28.310 Unvaccinated for COVID-19
CPT/HCPCS: 36000; 36415; 74176; 80053; 81001; 82150; 83690; 84703; 85025; 96360; 96374; 99284; J1885; A9270-GY

== ENCOUNTER 2024-01-09 10:41 | Emergency (ER) | payer OTHER ==
[2024-01-09 11:11] VITALS: TEMP 97
--- NOTE | 2024-01-09 11:29 | ERPHSYRPT ---
- History of Present Illness Time Seen by Provider: 01/09/24 11:15 Source: patient, family Exam Limitations: no limitations Patient Subjective Stated Complaint: pt here for headache, she has had a headache off and on since friday, she states friday her headache started while having intercourse. she states it was sudden and severe onset. it went a way and today she was setting at home and had a sudden on set of left sided head pain, she took tylenol which helped, she was . took one ativan at clinic today. sent down here form clinic to be seen Triage Nursing Assessment: pt alert,anxious at times. 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 Since that time she has had 2-3 episodes of generalized headache. Patient denies having head trauma. Patient does have a history of anxiety. Patient took Tylenol prior to evaluation at [facility] today. This seemed to help but it did not completely relieve her pain. Patient also took 1 mg of Ativan that she is prescribed for anxiety and that seemed to help as well. Patient has a history of neurocardiogenic syncope and mitral valve prolapse. Patient denies chest pain. Patient denies shortness of breath. Patient denies abdominal pain. Patient denies visual changes. Timing/Duration: worse Head Pain Location: global Severity of Pain-Max: moderate Severity of Pain-Current: mild Recent Head Trauma: no recent headache/trauma, occasional headaches Modifying Factors: Improves With: other (Thing) Associated Symptoms: denies symptoms Previous symptoms: no prior history Allergies/Adverse Reactions: naproxen Allergy (Verified 01/09/24 10:50) Rapid Heart Beat can't remember all Home Medications: Paroxetine HCl 20 mg [Paxil 20 MG] 20 mg PO HS 07/16/21 [History] Lorazepam 1 mg [Ativan 1 MG] 1 mg PO TID PRN PRN 10/17/23 [History] Hx Tetanus, Diphtheria Vaccination/Date Given: No Hx Influenza Vaccination/Date Given: No Hx Pneumococcal Vaccination/Date Given: No Immunizations Up to Date: Yes Travel Risk - International Travel Have you traveled outside of the country in past 3 weeks: No - Emerging Infectious Disease Are you exhibiting symptoms associated with any current EIDs: No - Review of Systems Constitutional: No Symptoms Eyes: No Symptoms Ears, Nose, & Throat: No Symptoms Respiratory: No Symptoms Cardiac: No Symptoms Abdominal/Gastrointestinal: No Symptoms Genitourinary Symptoms: No Symptoms Musculoskeletal: No Symptoms Skin: No Symptoms Neurological: Headache Psychological: No Symptoms Endocrine: No Symptoms Hematologic/Lymphatic: No Symptoms Immunological/Allergic: No Symptoms All Other Systems: Reviewed and Negative - Past Medical History Pertinent Past Medical History: Yes Neurological History: Other ENT History: No Pertinent History Cardiac History: Other Respiratory History: No Pertinent History Endocrine Medical History: No Pertinent History Musculoskeletal History: No Pertinent History GI Medical History: No Pertinent History, GERD History: No Pertinent History Psycho-Social History: Anxiety Female Reproductive Disorders: Abnormal Uterine Bleeding Other Medical History: NEUROCARDIAGENITIC SYNCOPE, MITRO VALVE PROLAPSE, R FOOT BONE SPUR - Past Surgical History Past Surgical History: Yes Neuro Surgical History: No Pertinent History Cardiac: No Pertinent History Respiratory: No Pertinent History Gastrointestinal: No Pertinent History Genitourinary: No Pertinent History Musculoskeletal: Orthopedic Surgery Female Surgical History: Other Other Surgical History: Excision of cyst on left wrist, Cervical circlage, ablasion Significant Family History: no pertinent family hx - Female History Hx Last Menstrual Period: none Hx Now: No - Social History Smoking Status: Never smoker Exposure to second hand smoke: No Drug Use: none Patient Lives Alone: No - Nursing Vital Signs Nursing Vital Signs: Initial Vital Signs Temperature 97.0 F 01/09/24 11:10 Pulse Rate 71 01/09/24 11:10 Respiratory Rate 18 01/09/24 11:10 Blood Pressure 148/100 01/09/24 11:10 O2 Sat by Pulse Oximetry 98 01/09/24 11:10 Pain Scale Pain Intensity 4 - Physical Exam General Appearance: no apparent distress, alert, anxiety Eye Exam: PERRL/EOMI, eyes nml inspection Ears, Nose, Throat Exam: normal ENT inspection, moist mucous membranes Neck Exam: normal inspection, non-tender, supple, full range of motion Respiratory Exam: airway intact, No chest tenderness, No respiratory distress Cardiovascular Exam: regular rate/rhythm, normal heart sounds, normal peripheral pulses Gastrointestinal/Abdominal Exam: No tenderness Extremity Exam: normal inspection, normal range of motion, pelvis stable Mental Status Exam: alert, 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, 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 There is no significant change when compared to twelve-lead EKG dated 11/15/2023.) Ordered Tests: Active Orders 24 hr Category Date Time Status EKG-ER Only STAT Care 01/09/24 11:02 Active HEAD WITHOUT CONTRAST [CT] Stat Exams 01/09/24 11:01 Completed UA W/RFX UR CULTURE Stat Lab 01/09/24 12:15 Completed Lab/Rad Data: Laboratory Results 01/09/24 Range/Units 12:15 Urine Color Yellow (Yellow) Urine Appearance Clear (Clear) Urine pH 6.5 (4.6-8.0) Ur Specific [place] <=1.005 (1.005-1.030) Urine Protein Negative (Negative) Urine Glucose (UA) Negative (Negative) mg/dL Urine Ketones Negative (Negative) Urine Blood Negative (Negative) Urine Nitrite Negative (Negative) Urine Bilirubin Negative (Negative) Urine Urobilinogen 0.2 (0.2) mg/dL Ur Leukocyte Esterase Negative (Negative) U Hyaline Cast (Auto) NONE SEEN (0-2) /LPF Urine Microscopic RBC 0-2 (0-5) /HPF Urine Microscopic WBC 0-2 (0-5) /HPF Ur Epithelial Cells None Seen (None Seen) /HPF Urine Bacteria None Seen (None Seen) /HPF Urine Culture Reflexed NO (NO) - Progress Progress: improved, re-examined Air Movement: good Progress Note: 01/09/24 11:29 My medical decision making and the assignment of moderate complexity of this patient's medical issue today is based on review of the patient's past medical history, review the patient's medication list, review patient drug allergy list, history of present illness and physical findings on examination. The workup in this patient includes urinalysis, twelve-lead EKG and CT scan of the head. Differential diagnosis includes migraine headache, intracranial abnormality, dehydration, urinary tract infection, anxiety 01/09/24 11:53 CT scan of the head without contrast was interpreted by the radiologist and I reviewed the impression. The impression states normal CT scan of head without contrast exam Blood Culture(s) Obtained: No Antibiotics given: No Counseled pt/family regarding: lab results, diagnosis, need for follow-up, rad results Medical Desision Making - Independent Historian Additional History obtained from: Spouse - Diagnostic Testing Diagnostic test were ordered, analyzed, and reviewed by me: Yes Radiological Interpretation: Reviewed by me, Teleradiologist Report - Risk of complications Low Risk: Low risk of morbidity from additional dx testing or treatment - Departure Departure Disposition: Home Clinical Impression: Headache Condition: Stable Critical Care Time: No Referrals: DEE ORNELAS NP [Primary Care Provider] - Follow up/PCP as directed Additional Instructions: Take all your medications as prescribed. Call your primary prescribing provider today, 01/09/2024, to make arrangements for follow-up appointment to be seen in the next 5 to 7 days.
--- NOTE | 2024-01-09 11:50 | XRAY ---
Indication: Headache. Multiple contiguous axial images obtained through the head without contrast. Comparison: May 19, 2023 Normal appearing brain parenchyma, ventricles, and bony calvarium. Visualized paranasal sinuses and mastoid air cells are clear. Impression: Continued normal CT head without contrast exam.
[2024-01-09 12:46] LABS: ADD URINE CULTURE? NO (NO); Appearance Clear (Clear); Bacteria None Seen /HPF (None Seen); Bilirubin Negative (Negative); Blood Negative (Negative); Epithelial Cells None Seen /HPF (None Seen); Glucose, Urine Negative (Negative); Hyaline Casts NONE SEEN /LPF (0-2); Ketones Negative (Negative); Leukocyte Esterase Negative (Negative); Nitrite Negative (Negative); Ph 6.5 (4.6-8.0); Protein,Urine Dip Negative (Negative); RBC 0-2 /HPF (0-5); Specific Gravity <=1.005 (1.005-1.030); Urobilinogen 0.2 mg/dL (0.2); WBC 0-2 /HPF (0-5)
[2024-01-09 12:49] VITALS: BP 113/76
[2024-01-09 13:03] VITALS: PULSE 76; RESP 16; O2SAT 96
== END 2024-01-09 13:04 | disposition home or self-care (01) ==
LOC: ED 10:41
DX: R51.9 Headache, unspecified (principal); F41.9 Anxiety disorder, unspecified
CPT/HCPCS: 70450; 81001; 93005; 99283

== ENCOUNTER 2024-12-21 15:24 | Emergency (ER) | payer OTHER ==
--- NOTE | 2024-12-21 15:29 | ERPHSYRPT ---
- History of Present Illness Time Seen by Provider: 12/21/24 15:28 Source: patient Exam Limitations: no limitations Physician History: This is an overweight 39-year-old white female patient who presents to the emergency department via private vehicle directly from work. In the last few days, the patient has had pain and tenderness in the left temporal region. Today at work, she had an abrupt onset of a popping sensation followed by more significant/worsening pain in the left temporal region. She denies trauma. She denies visual changes. She denies syncope. Patient has a history of anxiety/depression, gastroesophageal reflux disease, mitral valve prolapse and neuro cardio genic syncope. She denies chest pain. She denies shortness of breath. Timing/Duration: day(s) (Last few days pain in the yazdanism area left side), worse (Abrupt onset "pop" sensation with left yazdanism pain) Head Pain Location: temporal (The left side) Severity of Pain-Max: mild Severity of Pain-Current: mild Recent Head Trauma: no recent headache/trauma Modifying Factors: Improves With: other (Nothing) Associated Symptoms: denies symptoms, No confusion, No dizziness, No light- headedness, No loss of consciousness, No neck pain Previous symptoms: no prior history, no recent treatment Allergies/Adverse Reactions: naproxen Allergy (Verified 12/21/24 15:35) Rapid Heart Beat can't remember all Home Medications: Paroxetine HCl 20 mg [Paxil 20 MG] 30 mg PO HS 07/16/21 [History] Lorazepam 1 mg [Ativan 1 MG] 1 mg PO TID PRN PRN 10/17/23 [History] Lisinopril 5 mg [Zestril 5 MG] 5 mg PO DAILY 12/21/24 [History] Smz/Tmp Ds Tablet [Bactrim Ds Tablet] 1 tab PO BID 12/21/24 [History] Hx Tetanus, Diphtheria Vaccination/Date Given: No Hx Influenza Vaccination/Date Given: No Hx Pneumococcal Vaccination/Date Given: No Travel Risk - International Travel Have you traveled outside of the country in past 3 weeks: No - Emerging Infectious Disease Are you exhibiting symptoms associated with any current EIDs: No - Review of Systems Constitutional: No Symptoms Eyes: No Symptoms Ears, Nose, & Throat: No Symptoms Respiratory: No Symptoms Cardiac: No Symptoms Abdominal/Gastrointestinal: No Symptoms Genitourinary Symptoms: No Symptoms Musculoskeletal: No Symptoms Skin: No Symptoms Neurological: Headache (Left temporal region), Other (No visual changes), No Dizziness, No Gait Changes, No Speech Changes, No Vertigo Psychological: No Symptoms Endocrine: No Symptoms Hematologic/Lymphatic: No Symptoms Immunological/Allergic: No Symptoms All Other Systems: Reviewed and Negative - Past Medical History Pertinent Past Medical History: Yes Neurological History: Other ENT History: No Pertinent History Cardiac History: Other Respiratory History: No Pertinent History Endocrine Medical History: No Pertinent History Musculoskeletal History: No Pertinent History GI Medical History: No Pertinent History, GERD History: No Pertinent History Psycho-Social History: Anxiety Female Reproductive Disorders: Abnormal Uterine Bleeding Other Medical History: NEUROCARDIAGENITIC SYNCOPE, MITRO VALVE PROLAPSE, R FOOT BONE SPUR - Past Surgical History Past Surgical History: Yes Neuro Surgical History: No Pertinent History Cardiac: No Pertinent History Respiratory: No Pertinent History Gastrointestinal: No Pertinent History Genitourinary: No Pertinent History Musculoskeletal: Orthopedic Surgery Female Surgical History: Other Other Surgical History: Excision of cyst on left wrist, Cervical circlage, ablasion Significant Family History: no pertinent family hx - Female History Hx Last Menstrual Period: June - Social History Smoking Status: Never smoker Exposure to second hand smoke: No Drug Use: none Patient Lives Alone: No - Social Determinants of Health Do you worry about a steady place to live?: No In the past 12 months,have you had to go without utilities?: No Transportation Issues: No Has anyone in your support network made you feel unsafe?: No Have you or anyone in your house had to go w/o enough food: No - Nursing Vital Signs Nursing Vital Signs: Initial Vital Signs Blood Pressure 148/91 12/21/24 15:36 Pain Scale Pain Intensity 4 - Physical Exam General Appearance: no apparent distress, alert, anxiety, obese Eye Exam: PERRL/EOMI, eyes nml inspection Ears, Nose, Throat Exam: normal ENT inspection, moist mucous membranes Neck Exam: normal inspection, non-tender, supple, full range of motion Respiratory Exam: normal breath sounds, lungs clear, airway intact, No chest tenderness, No respiratory distress Cardiovascular Exam: regular rate/rhythm, normal heart sounds, normal peripheral pulses Gastrointestinal/Abdominal Exam: soft, normal bowel sounds, No tenderness Back Exam: normal inspection, normal range of motion, No CVA tenderness, No vertebral tenderness Extremity Exam: normal inspection, normal range of motion, pelvis stable Mental Status Exam: alert, 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, 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 Exam: normal hearing, normal speech, PERRL, tongue midline, No facial droop, No facial paresthesias Coordination/Gait Exam: normal gait, normal cerebellar function Motor/Sensory Exam: no motor deficit, no sensory deficit Skin Exam: normal color, warm, dry Lymphatic Exam: No adenopathy SpO2 Interpretation: normal O2 Delivery: Room Air - Course Nursing assessment & vital signs reviewed: Yes Ordered Tests: Active Orders 24 hr Category Date Time Status HEAD WITHOUT CONTRAST [CT] Stat Exams 12/21/24 15:46 Completed - Progress Progress: re-examined Air Movement: good Progress Note: 12/21/24 15:52 My medical decision making and the assignment of low complexity to this patient's medical issue today is based on review of the past medical history, review of the patient's medication list, reviewed the patient drug allergy list, history present illness and physical findings on examination. The workup in this patient includes CT scan of the head without contrast. Differential diagnosis includes but is not limited to acute intracranial abnormality, left temporal arteritis, migraine headache 12/21/24 17:[address] scan of the head without contrast was interpreted by the radiologist. The comparison CT scan of the head without contrast was performed on 01/09/2024. That test was interpreted as normal. Today's CT scan of the head without contrast was interpreted by the radiologist. There paranasal sinus disease otherwise continued normal CT scan of the head 12/21/24 17:03 Patient's NIH score is 0 Blood Culture(s) Obtained: No Antibiotics given: No Counseled pt/family regarding: diagnosis, need for follow-up, rad results Medical Desision Making - Independent Historian Additional History obtained from: Spouse - Diagnostic Testing Radiological Interpretation: Reviewed by me, Teleradiologist Report - Risk of complications The pt has a mod risk of morbidity or mortality based on: Need for prescription drug management - Departure Departure Disposition: Home Clinical Impression: Headache, Sinusitis Condition: Stable Critical Care Time: No Additional Instructions: Take your antibiotics and other medications as prescribed. Call your primary care provider tomorrow, 12/22/2024, to make arrangements for follow-up appointment for further evaluation and management Prescriptions: Amoxicillin 500 mg Cap [Amoxil 500 mg] 500 mg PO TID #21 cap
[2024-12-21 15:43] VITALS: TEMP 97.4
--- NOTE | 2024-12-21 16:54 | XRAY ---
Indication: Severe headache. Multiple contiguous axial images through the head without contrast. Comparison: January 09, 2024 Normal appearing brain parenchyma, ventricles, and bony calvarium. Mild mucosal thickening both ethmoid, both sphenoid, and right maxillary sinuses without fluid leveling. Mastoid air cells are clear. Impression: Paranasal sinus disease. Otherwise continued normal CT head without contrast exam.
[2024-12-21 17:08] VITALS: BP 123/85; PULSE 78; RESP 19; O2SAT 71
== END 2024-12-21 17:13 | disposition home or self-care (01) ==
LOC: ED 15:24
DX: R51.9 Headache, unspecified (principal); J32.8 Other chronic sinusitis; Z79.899 Other long term (current) drug therapy
CPT/HCPCS: 70450; 99284

== ENCOUNTER 2025-07-03 11:32 | Emergency (ER) | payer OTHER ==
--- NOTE | 2025-07-03 11:51 | ERPHSYRPT ---
- History of Present Illness Time Seen by Provider: 07/03/25 11:50 Historian: patient Exam Limitations: no limitations Physician History: Presents with a 3-day history of abdominal pain located in the epigastric region that radiates to the right upper quadrant to her back. She was seen in [facility] for upper respiratory type symptoms on and given prednisone, but patient only completed 2 days. Symptoms worse today. She reports nausea without vomiting or diarrhea. No fevers. Timing/Duration: day(s) (3) Activities at Onset: none Quality: sharpness, stabbing Abdominal Pain Onset Location: epigastric Pain Radiation: RUQ, shoulder Severity of Pain-Max: severe Severity of Pain-Current: severe Modifying Factors: Improves With: nothing. Worsens With: palpation Previous symptoms: no prior history Allergies/Adverse Reactions: naproxen Allergy (Verified 07/03/25 11:44) Rapid Heart Beat can't remember all Home Medications: Paroxetine HCl 20 mg [Paxil 20 MG] 30 mg PO HS 07/16/21 [History] Lorazepam 1 mg [Ativan 1 MG] 1 mg PO TID PRN PRN 10/17/23 [History] Lisinopril 5 mg [Zestril 5 MG] 10 mg PO DAILY 12/21/24 [History] Hx Tetanus, Diphtheria Vaccination/Date Given: No Hx Influenza Vaccination/Date Given: No Hx Pneumococcal Vaccination/Date Given: No Travel Risk - Emerging Infectious Disease Are you exhibiting symptoms associated with any current EIDs: No - Review of Systems All Other Systems: Reviewed and Negative - Past Medical History Pertinent Past Medical History: Yes Neurological History: Other ENT History: No Pertinent History Cardiac History: Other Respiratory History: No Pertinent History Endocrine Medical History: No Pertinent History Musculoskeletal History: No Pertinent History GI Medical History: No Pertinent History, GERD History: No Pertinent History Psycho-Social History: Anxiety Female Reproductive Disorders: Abnormal Uterine Bleeding Other Medical History: NEUROCARDIAGENITIC SYNCOPE, MITRO VALVE PROLAPSE, R FOOT BONE SPUR - Past Surgical History Past Surgical History: Yes Neuro Surgical History: No Pertinent History Cardiac: No Pertinent History Respiratory: No Pertinent History Gastrointestinal: No Pertinent History Genitourinary: No Pertinent History Musculoskeletal: Orthopedic Surgery Female Surgical History: Other Other Surgical History: Excision of cyst on left wrist, Cervical circlage, ablasion Significant Family History: no pertinent family hx - Female History Hx Last Menstrual Period: June - Social History Smoking Status: Never smoker Exposure to second hand smoke: No Drug Use: none Patient Lives Alone: No - Social Determinants of Health Do you worry about a steady place to live?: No In the past 12 months,have you had to go without utilities?: No Transportation Issues: No Has anyone in your support network made you feel unsafe?: No Have you or anyone in your house had to go w/o enough food: No - Nursing Vital Signs Nursing Vital Signs: Initial Vital Signs Temperature 98.1 F 07/03/25 11:53 Pulse Rate 86 07/03/25 11:53 Respiratory Rate 18 07/03/25 11:53 Blood Pressure 110/68 07/03/25 11:53 O2 Sat by Pulse Oximetry 97 07/03/25 11:53 Pain Scale Pain Intensity 6 - Physical Exam General Appearance: no apparent distress, obese Neck Exam: normal inspection, supple, full range of motion Respiratory Exam: normal breath sounds, lungs clear, airway intact, No respiratory distress Cardiovascular Exam: regular rate/rhythm, normal heart sounds, capillary refill <2 sec, No edema Gastrointestinal/Abdomen Exam: soft, tenderness (epigastric, RUQ), guarding, No distention, No rebound Neurologic Exam: alert, 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, cooperative Skin Exam: normal color, warm, dry, No rash SpO2 Interpretation: normal O2 Delivery: Room Air - Course Nursing assessment & vital signs reviewed: Yes Ordered Tests: Active Orders 24 hr Category Date Time Status EKG-ER Only STAT Care 07/03/25 11:55 Active IV Insertion STAT Care 07/03/25 11:55 Active CTA ABDOMEN W AND/OR WO CONTRA [CT] Stat Exams 07/03/25 12:46 Completed CTA CHEST W AND/OR WO [CT] Stat Exams 07/03/25 11:57 Completed CBC W DIFF Stat Lab 07/03/25 12:05 Completed CMP Stat Lab 07/03/25 12:05 Completed CULTURE,URINE Stat Lab 07/03/25 12:05 Received HCG, Quantitative (Inhouse) Stat Lab 07/03/25 12:05 Completed LIPASE Stat Lab 07/03/25 12:05 Completed Lactic Acid Stat Lab 07/03/25 12:05 Completed TROPONIN Q4H Lab 07/03/25 12:05 Completed TROPONIN Q4H Lab 07/03/25 16:00 Ordered TROPONIN Q4H Lab 07/03/25 20:00 Ordered UA W/RFX UR CULTURE Stat Lab 07/03/25 12:05 Completed Medication Summary Discontinued Medications Generic Name Dose Route Start Last Admin Trade Name Freq PRN Reason Stop Dose Admin Droperidol 1.25 mg 07/03/25 11:55 07/03/25 12:32 Droperidol 5 Mg/2 Ml Vial IV 07/03/25 11:56 1.25 mg STAT ONE Administration Droperidol Confirm 07/03/25 12:31 Droperidol 5 Mg/2 Ml Vial Administered 07/03/25 12:32 Dose 5 mg .ROUTE .STK-MED ONE Sodium Chloride 1,000 mls @ 999 mls/hr 07/03/25 11:55 07/03/25 12:33 Sodium Chloride 0.9% 1000 Ml IV 07/03/25 12:55 999 mls/hr .Q1H1M STA Administration Sodium Chloride Confirm 07/03/25 12:31 Sodium Chloride 0.9% 1000 Ml Administered 07/03/25 12:32 Dose 1,000 mls @ ud .ROUTE .STK-MED ONE Nitrofurantoin Macrocrystals 100 mg 07/03/25 13:19 Nitrofurantoin Macro 100 Mg Capsule PO 07/03/25 13:20 STAT ONE Lab/Rad Data: Laboratory Result Diagrams 07/03/25 12:05 07/03/25 12:05 Laboratory Results 07/03/25 07/03/25 07/03/25 Range/Units 12:05 12:05 12:05 WBC (3.98-10.04) x10^3/uL RBC (3.93-5.22) x10^6/uL Hgb (11.2-15.7) g/dL Hct (34.1-44.9) % MCV (79.4-94.8) fL MCH (25.6-32.2) pg MCHC (32.2-35.5) g/dL RDW (11.7-14.4) % Plt Count (182-369) x10^3/uL MPV (9.4-12.3) fL Gran % (34.0-71.1) % Immature Gran % (Auto) (0.001-0.429) % Nucleat RBC Rel Count (0.00-0.2) % Eos # (Auto) (0.04-0.36) x10^3/uL Immature Gran # (Auto) (0.001-0.031) x10^3u/L Absolute Lymphs (auto) (1.18-3.74) x10^3/uL Absolute Monos (auto) (0.24-0.86) x10^3/uL Absolute Nucleated RBC (0.00-0.012) x10^3u/L Lymphocytes % (19.3-51.7) % Monocytes % (4.7-12.5) % Eosinophils % (0.7-5.8) % Basophils % (0.1-1.2) % Absolute Granulocytes (1.56-6.13) x10^3/uL Basophils # (0.01-0.08) x10^3/uL Sodium (135-145) mmol/L Potassium (3.5-5.1) mmol/L Chloride (98-107) mmol/L Carbon Dioxide (22-30) mmol/L Anion Gap (5-15) MEQ/L BUN (7-17) mg/dL Creatinine (0.52-1.04) mg/dL Estimated GFR ML/MIN Glucose (74-106) mg/dL Lactic Acid (0.4-2.0) Calcium (8.4-10.2) mg/dL Total Bilirubin (0.2-1.3) mg/dL AST (14-36) U/L ALT (0-35) U/L Alkaline Phosphatase (38-126) U/L Troponin I < 0.012 (0.000-0.033) ng/mL Serum Total Protein (6.3-8.2) g/dL Albumin (3.5-5.0) g/dL Lipase (23-300) U/L Beta HCG, Quant < 2.39 mIU/ml Urine Color Dark Yellow A (Yellow) Urine Appearance Cloudy A (Clear) Urine pH 5.0 (4.6-8.0) Ur Specific [place] >=1.030 A (1.005-1.030) Urine Protein 30 (Negative) Urine Glucose (UA) Negative (Negative) mg/dL Urine Ketones 15 A (Negative) Urine Blood Negative (Negative) Urine Nitrite Negative (Negative) Urine Bilirubin Moderate A (Negative) Urine Urobilinogen 1.0 A (0.2) mg/dL Ur Leukocyte Esterase Trace A (Negative) U Hyaline Cast (Auto) 20-50 (0-2) /LPF Urine Microscopic RBC 3-5 (0-5) /HPF Urine Microscopic WBC 6-10 A (0-5) /HPF Ur Epithelial Cells Many A (None Seen) /HPF Urine Bacteria Moderate A (None Seen) /HPF Urine Culture Reflexed YES (NO) 07/03/25 07/03/25 07/03/25 Range/Units 12:05 12:05 12:05 WBC 10.1 H (3.98-10.04) x10^3/uL RBC 4.46 (3.93-5.22) x10^6/uL Hgb 12.3 (11.2-15.7) g/dL Hct 38.6 (34.1-44.9) % MCV 86.5 (79.4-94.8) fL MCH 27.6 (25.6-32.2) pg MCHC 31.9 L (32.2-35.5) g/dL RDW 12.8 (11.7-14.4) % Plt Count 219 (182-369) x10^3/uL MPV 9.2 L (9.4-12.3) fL Gran % 61.4 (34.0-71.1) % Immature Gran % (Auto) 0.4 (0.001-0.429) % Nucleat RBC Rel Count 0.0 (0.00-0.2) % Eos # (Auto) 0.10 (0.04-0.36) x10^3/uL Immature Gran # (Auto) 0.04 H (0.001-0.031) x10^3u/L Absolute Lymphs (auto) 3.17 (1.18-3.74) x10^3/uL Absolute Monos (auto) 0.57 (0.24-0.86) x10^3/uL Absolute Nucleated RBC 0.00 (0.00-0.012) x10^3u/L Lymphocytes % 31.3 (19.3-51.7) % Monocytes % 5.6 (4.7-12.5) % Eosinophils % 1.0 (0.7-5.8) % Basophils % 0.3 (0.1-1.2) % Absolute Granulocytes 6.23 H (1.56-6.13) x10^3/uL Basophils # 0.03 (0.01-0.08) x10^3/uL Sodium 136 (135-145) mmol/L Potassium 3.3 L (3.5-5.1) mmol/L Chloride 100 (98-107) mmol/L Carbon Dioxide 29 (22-30) mmol/L Anion Gap 9.8 (5-15) MEQ/L BUN 16 (7-17) mg/dL Creatinine 0.96 (0.52-1.04) mg/dL Estimated GFR 77.2 ML/MIN Glucose 85 (74-106) mg/dL Lactic Acid 0.5 (0.4-2.0) Calcium 9.2 (8.4-10.2) mg/dL Total Bilirubin 0.20 (0.2-1.3) mg/dL AST 18 (14-36) U/L ALT 16 (0-35) U/L Alkaline Phosphatase 77 (38-126) U/L Troponin I (0.000-0.033) ng/mL Serum Total Protein 6.8 (6.3-8.2) g/dL Albumin 4.2 (3.5-5.0) g/dL Lipase 101 (23-300) U/L Beta HCG, Quant mIU/ml Urine Color (Yellow) Urine Appearance (Clear) Urine pH (4.6-8.0) Ur Specific [place] (1.005-1.030) Urine Protein (Negative) Urine Glucose (UA) (Negative) mg/dL Urine Ketones (Negative) Urine Blood (Negative) Urine Nitrite (Negative) Urine Bilirubin (Negative) Urine Urobilinogen (0.2) mg/dL Ur Leukocyte Esterase (Negative) U Hyaline Cast (Auto) (0-2) /LPF Urine Microscopic RBC (0-5) /HPF Urine Microscopic WBC (0-5) /HPF Ur Epithelial Cells (None Seen) /HPF Urine Bacteria (None Seen) /HPF Urine Culture Reflexed (NO) - Progress Progress: improved Progress Note: Patients symptoms not typical for emergent causes of abdominal pain such as, but not limited to, appendicitis, abdominal aortic aneurysm/dissection, surgical biliary disease, pancreatitis, SBO, mesenteric ischemia, serious intra- abdominal bacterial illness. Presentation also not typical of gynecologic emergencies such as TOA, Ovarian Torsion, PID. Not Ectopic. Doubt atypical ACS. Pt tolerating PO. Disposition: Patient will be discharged with strict return precautions and follow up with primary MD within 12-24 hours for further evaluation. Patient understands that this still may have an early presentation of an emergent medical condition such as appendicitis that will require a recheck. 07/03/25 14:03 CBC, CMP unremarkable, UA shows UTI, started on Macrobid. CTA chest/A/P neg for acute findings. DC home with Macrobid. Declines nausea meds to pharmacy. Counseled pt/family regarding: lab results, diagnosis, need for follow-up, rad results Medical Desision Making - Diagnostic Testing Diagnostic test were ordered, analyzed, and reviewed by me: Yes Radiological Interpretation: Interpreted by me, Reviewed by me, Teleradiologist Report - Risk of complications The pt has a mod risk of morbidity or mortality based on: Need for prescription drug management - Departure Departure Disposition: Home Clinical Impression: UTI (urinary tract infection), Abdominal pain Condition: Stable Critical Care Time: No Referrals: DEE ORNELAS NP [Primary Care Provider, [facility]] - Follow up/PCP as directed Instructions: Urinary tract infection - Discharge instructions Prescriptions: Nitrofurantoin Macro 100 mg [Macrobid 100MG Capsule] 100 mg PO BID 5 Days #9 cap
[2025-07-03 11:54] VITALS: PULSE 86; RESP 18; TEMP 98.1
[2025-07-03 12:11] LABS: BASOPHIL % 0.3 % (0.1-1.2); Basophil (Absolute #) 0.03 x10^3/uL (0.01-0.08); Eosinophil (Absolute #) 0.10 x10^3/uL (0.04-0.36); Hematocrit 38.6 % (34.1-44.9); Hemoglobin 12.3 g/dL (11.2-15.7); IMMATURE GRAN # 0.04 x10^3u/L (0.001-0.031); IMMATURE GRAN % 0.4 % (0.001-0.429); Lymphocyte (Absolute #) 3.17 x10^3/uL (1.18-3.74); Mean Corpuscular Hemoglobin 27.6 pg (25.6-32.2); Mean Corpuscular Hgb Concent. 31.9 g/dL (32.2-35.5); Monocyte (Absolute #) 0.57 x10^3/uL (0.24-0.86); NUCLEATED RBC # 0.00 x10^3u/L (0.00-0.012); NUCLEATED RBC % 0.0 % (0.00-0.2); Platelet Count 219 x10^3/uL (182-369); Red Blood Count 4.46 x10^6/uL (3.93-5.22); White Blood Count 10.1 x10^3/uL (3.98-10.04)
[2025-07-03 12:27] LABS: Calcium 9.2 mg/dL (8.4-10.2); Carbon Dioxide 29.0 mmol/L (22-30); Creatinine 1 0.96 mg/dL (0.52-1.04); EST GLOMERULAR FILTRATION RATE 77.2 ML/MIN; Glucose 85.0 mg/dL (74-106); Potassium 3.3 mmol/L (3.5-5.1); SGOT/AST 18.0 U/L (14-36); SGPT/ALT 16.0 U/L (0-35); Total Protein 6.8 g/dL (6.3-8.2)
[2025-07-03] MEDS ORDERED: Inapsine 5 MG/2 ML ONE (12:31)
[2025-07-03] MEDS: Inapsine 5 MG/2 ML IV ONE (12:32)
[2025-07-03 12:35] LABS: Glucose, Urine Negative (Negative); Protein,Urine Dip 30 (Negative)
--- NOTE | 2025-07-03 13:37 | XRAY ---
CLINICAL HISTORY: abd pain COMPARISON: None. TECHNIQUE: CT angiography of the chest was performed with and without intravenous contrast using the following protocol: axial images were obtained and reconstructed into coronal and sagittal images. Non-contrast images were initially acquired, followed by contrast-enhanced images in arterial and venous phases. Intravenous contrast, 80 cc Isovue 370 was administered using automated injection techniques. Bolus tracking was employed to optimize arterial phase imaging. One of these 3D techniques was utilized: Maximum Intensity Pixel (MIP), 3D Reconstructed Images, Volume Rendered Images, or Surface Shaded Rendering. One of the following dose reduction techniques was utilized for this exam: automated exposure control, adjustment of the mA and/or kV according to patient size, and use of iterative reconstruction. FINDINGS: Aorta and Great Vessels: The ascending aorta is normal in caliber. There is no aneurysm, dissection, or significant atherosclerosis. The aortic arch is normal in caliber. There is no aneurysm, dissection, or significant atherosclerosis. The descending aorta is normal in caliber. There is no aneurysm, dissection, or significant atherosclerosis. The main pulmonary artery and its branches are patent. There is no evidence of pulmonary embolism or significant stenosis. Heart: The cardiac chambers are normal in size. There is no evidence of cardiomegaly. The pericardium shows no pericardial effusion or thickening. Lungs and Pleura: The lungs are clear without evidence of consolidation, collapse, or focal lesions. There is a left lower lobe apical segment calcified granuloma measuring 7 mm. There is no pleural effusion or pleural thickening. Mediastinum: There is no mediastinal mass or abnormal lymphadenopathy. Carinal and left hilar small calcified lymph nodes are likely old granulomatous. There is a normal appearance of the trachea and central bronchi. Hilar Structures: The hilar structures are normal without enlargement. Chest Wall: There are no mass lesions or abnormalities in the chest wall. Vascular Structures: The superior vena cava is patent without evidence of stenosis or thrombus. The inferior vena cava is patent without evidence of stenosis or thrombus. Bones and Soft Tissues: Spondylodegenerative changes are present. There are no fractures, lytic, or blastic lesions of the visualized bony structures. The soft tissues are unremarkable. A small hiatal hernia is present. IMPRESSION: 1. No evidence of pulmonary embolism or significant stenosis. 2. No aortic aneurysm, dissection, or significant atherosclerosis. 3. No evidence of lung parenchymal consolidation or collapse. 4. A left lower lobe apical segment calcified granuloma measuring 7 mm. 5. A small hiatal hernia. Electronically Signed by: Fabrice Rose MD. (07/03/2025 13:36:22 EDT)
--- NOTE | 2025-07-03 13:56 | XRAY ---
CLINICAL HISTORY: abd pain COMPARISON: 04/20/2023 CT. TECHNIQUE: CT angiography of the abdomen and pelvis was performed with and without intravenous contrast using the following protocol: axial images, and reconstructed coronal and sagittal images. Non-contrast images were initially acquired, followed by contrast-enhanced images in arterial and venous phases. Intravenous contrast [name and volume] was administered using automated injection techniques. Bolus tracking was employed to optimize arterial phase imaging. For CTA's, we need the post-processing techniques that constitute a CTA study. Physicians must state in their dictation: One of these 3D techniques was utilized: Maximum Intensity Pixel (MIP), 3D Reconstructed Images, Volume Rendered Images, Surface Shaded Rendering. One of the following dose reduction techniques was utilized for this exam: Automated exposure control, adjustment of the mA and/or kV according to patient size, and use of iterative reconstruction. FINDINGS: Abdominal Aorta: The abdominal aorta is normal in caliber, with no evidence of aneurysm, dissection, or significant atherosclerotic disease. Celiac Artery and Branches: The celiac artery and its branches (left gastric artery, splenic artery, and common hepatic artery) are patent, without stenosis or aneurysm. Superior Mesenteric Artery (SMA): The SMA is patent, with normal origin and course. There is no evidence of stenosis, aneurysm, or dissection. Renal Arteries: Both renal arteries are patent, with no evidence of stenosis, occlusion, or aneurysm. There is normal enhancement of the renal parenchyma. Inferior Mesenteric Artery (REJI): The REJI is patent, with no evidence of stenosis or occlusion. Pelvic Arteries: The iliac arteries (common, internal, and external) are patent bilaterally, without evidence of stenosis, occlusion, or aneurysm. Other Abdominal and Pelvic Vessels: The portal vein, splenic vein, and superior mesenteric vein are patent, with normal enhancement. Solid Organs: Liver: Normal in size and shape, with diffuse low density denoting fatty infiltration. No focal lesions. Normal enhancement pattern. Gallbladder and Biliary System: The gallbladder is normal. No stones or wall thickening. The bile ducts are normal in caliber. Pancreas: Normal in size and density. No masses or cysts. Normal enhancement. Spleen: Normal in size and density. No focal lesions. Normal enhancement. Few dense calcific foci, likely old granulomatous. Kidneys and Adrenal Glands: Normal in size and shape. No renal masses or hydronephrosis. The adrenal glands are unremarkable. Normal enhancement. Bowel: No evidence of bowel obstruction or significant small bowel wall thickening. No abnormal enhancement. Apparent mild circumferential mural thickening of the different colonic segments, with clear surrounding fat planes, likely due to underdistended, collapsed lumen. Peritoneal and Retroperitoneal Structures: No free fluid or abnormal fluid collections were identified within the abdomen or pelvis. Stable, small, centimetric mesenteric lymph nodes; non-specific. No pathological lymphadenopathy was noted. A right ovarian fluid-density follicular cyst measuring 26 mm, likely functional/follicle. Bones and Soft Tissues: Mild spondylodegenerative changes. Pelvic bones and soft tissues are unremarkable. No fractures or abnormal masses were identified. IMPRESSION: 1. No abdominal or pelvic vascular abnormalities. No acute abdominal pathology. 2. Fatty liver. New. 3. A small right ovarian cyst measuring 26 mm, likely functional. New. 4. Resolution of the prior mild David pouch fluid and the left adnexal cyst. Electronically Signed by: Fabrice Rose MD. (07/03/2025 13:55:55 EDT)
[2025-07-03] MEDS: Macrobid 100MG Capsule PO ONE (14:12)
[2025-07-03] MEDS ORDERED: Macrobid 100MG Capsule ONE (14:12)
[2025-07-03 14:34] VITALS: BP 106/66; O2SAT 98
== END 2025-07-03 14:34 | disposition home or self-care (01) ==
LOC: ED 11:32
DX: N39.0 Urinary tract infection, site not specified (principal); R10.13 Epigastric pain; R11.0 Nausea; Z79.899 Other long term (current) drug therapy